=== PATIENT | female | born 1930 | race Caucasian/White ===

== ENCOUNTER → 2016-12-14 | Outpatient (CLI) | payer OTHER ==
[~2016-12-14] MED LIST: AMLO-114 PO; ASPEC81 PO; ATOR-26 PO; CIPR-255 PO; CLTP PO; LSN25 PO; MAGN1TAB41 PO; METO25TA3 PO; NTRGSL/4 UT
[2016-12-14 13:14] LABS: BLOOD UREA NITROGEN 32 mg/dl (7-18); BUN/CREATININE RATIO 24.8 (10-20); CALCIUM 9.4 mg/dl (8.5-10.1); CARBON DIOXIDE 26 mmol/L (21-32); CHLORIDE 104 mmol/L (98-107); GLUCOSE 91 mg/dl (70-99); POTASSIUM 4.5 mmol/L (3.5-5.1); SODIUM 141 mmol/L (136-145)
== END | disposition home or self-care (01) ==
LOC: C.LABPVFM 08:28
PROVIDERS: ATTEND Internal Medicine Cardiovascular Disease
DX: I10 Essential (primary) hypertension (principal)

== ENCOUNTER → 2017-05-03 | Outpatient (CLI) | payer OTHER ==
[2017-05-03 13:24] LABS: CALCIUM 9.3 mg/dl (8.5-10.1)
[2017-05-03 13:29] LABS: ALT/SGPT 13 U/L (12-78); BLOOD UREA NITROGEN 35 mg/dl (7-18); BUN/CREATININE RATIO 26.6 (10-20); CARBON DIOXIDE 27 mmol/L (21-32); CHLORIDE 108 mmol/L (98-107); CHOLESTEROL 143 mg/dl (0-200); GLUCOSE 85 mg/dl (70-99); POTASSIUM 4.5 mmol/L (3.5-5.1); SODIUM 144 mmol/L (136-145); TRIGLYCERIDES 112 mg/dl (0-150); VERY LOW DENSITY LIPOPROT CALC 22 mg/dl
[2017-05-03 13:39] LABS: ALKALINE PHOSPHATASE 62 U/L (45-117); AST/SGOT 19 U/L (15-37); CHOLESTEROL/HDL RATIO 2.8; HDL CHOLESTEROL 51 mg/dl; LDL CHOLESTEROL CALCULATED 70 mg/dl
== END | disposition home or self-care (01) ==
LOC: C.LABPVFM 09:03
PROVIDERS: ATTEND Family Medicine
DX: I12.9 Hypertensive chronic kidney disease with stage 1 through stage 4 chronic kidney disease, or unspecified chronic kidney disease (principal); E78.5 Hyperlipidemia, unspecified; N18.3 Chronic kidney disease, stage 3 (moderate)

== ENCOUNTER → 2017-05-20 | Outpatient (CLI) | payer OTHER ==
[2017-05-20 13:42] LABS: BLOOD UREA NITROGEN 32 mg/dl (7-18); BUN/CREATININE RATIO 24.8 (10-20); CALCIUM 9.5 mg/dl (8.5-10.1); CARBON DIOXIDE 24 mmol/L (21-32); CHLORIDE 105 mmol/L (98-107); GLUCOSE 98 mg/dl (70-99); POTASSIUM 4.7 mmol/L (3.5-5.1); SODIUM 137 mmol/L (136-145)
== END | disposition home or self-care (01) ==
LOC: C.LABPVFM 08:47
PROVIDERS: ATTEND Internal Medicine Cardiovascular Disease
DX: E78.5 Hyperlipidemia, unspecified (principal); R00.1 Bradycardia, unspecified; I95.1 Orthostatic hypotension; N18.3 Chronic kidney disease, stage 3 (moderate); I12.9 Hypertensive chronic kidney disease with stage 1 through stage 4 chronic kidney disease, or unspecified chronic kidney disease

== ENCOUNTER → 2017-09-28 | Outpatient (CLI) | payer OTHER ==
[2017-09-28 17:34] LABS: BLOOD UREA NITROGEN 33 mg/dl (7-18); BUN/CREATININE RATIO 26.6 (10-20); CALCIUM 9.6 mg/dl (8.5-10.1); CARBON DIOXIDE 26 mmol/L (21-32); CHLORIDE 103 mmol/L (98-107); CREATININE 1.25 mg/dl (0.60-1.20); GLUCOSE 93 mg/dl (70-99); POTASSIUM 5.1 mmol/L (3.5-5.1); SODIUM 136 mmol/L (136-145)
[2017-09-28 17:35] LABS: PHOSPHORUS 3.6 mg/dl (2.5-4.9)
== END | disposition home or self-care (01) ==
LOC: C.LABPVFM 11:41
PROVIDERS: ATTEND Family Medicine
DX: N18.3 Chronic kidney disease, stage 3 (moderate) (principal)

== ENCOUNTER → 2018-02-23 | Outpatient (CLI) | payer OTHER ==
[~2018-02-23] MED LIST changes: -METO25TA3 PO; +METO25TA4 PO
[2018-02-23 13:48] LABS: BLOOD UREA NITROGEN 25 mg/dl (7-18); GLUCOSE 96 mg/dl (70-99)
[2018-02-23 13:49] LABS: ALBUMIN 3.6 gm/dl (3.4-5.0); ALT/SGPT 14 U/L (12-78); AST/SGOT 20 U/L (15-37); CALCIUM 9.6 mg/dl (8.5-10.1); CARBON DIOXIDE 28 mmol/L (21-32); CREATININE 1.25 mg/dl (0.60-1.20); POTASSIUM 4.3 mmol/L (3.5-5.1); SODIUM 137 mmol/L (136-145)
[2018-02-23 13:51] LABS: ALKALINE PHOSPHATASE 75 U/L (45-117); CHOLESTEROL 148 mg/dl (0-200); LDL CHOLESTEROL CALCULATED 71 mg/dl; TOTAL PROTEIN 7.3 gm/dl (6.4-8.2)
== END | disposition home or self-care (01) ==
LOC: C.LABPVFM 08:44
PROVIDERS: ATTEND Family Medicine
DX: I12.9 Hypertensive chronic kidney disease with stage 1 through stage 4 chronic kidney disease, or unspecified chronic kidney disease (principal); E78.5 Hyperlipidemia, unspecified; I25.10 Atherosclerotic heart disease of native coronary artery without angina pectoris; N18.3 Chronic kidney disease, stage 3 (moderate); K21.9 Gastro-esophageal reflux disease without esophagitis

== ENCOUNTER 2018-11-19 06:02 | Inpatient (IN) ==
[2018-11-19] MEDS ORDERED: NITROGLYCERIN SL 0.4 MG/TAB TAB SL STA (06:16)
[2018-11-19] MEDS ORDERED: ASPIRIN CHEW 324 MG PO STA (06:16)
[2018-11-19] MEDS ORDERED: NITROGLYCERIN SL 0.4 MG/TAB TAB ONE (06:19)
--- NOTE | 2018-11-19 06:21 | Emergency Department Note ---
ED Provider Note Name: India Reyes Age: 87 F Arrives Via: POV Informant: Pt CC: Chest Pain HPI: 87 female arrives for evaluation of chest pain. Patient note stuttering on and off chest discomfort over last few days. Nothing makes better nor worse. Associated diaphoresis and lightheaded. No nausea, vomiting, syncope, palpitations, leg swelling, shortness of breath nor other symptoms. This morning vastly worsened chest pain. Crushing in nature. Comes to ED for evaluation. Notes pain is starting to ease up. History of CAD with CABG. Notes stress test last year which she thinks was normal. No medications prior to arrival. Notes fall last week with left head injury and left hip/lower leg contusions. No LOC, no headache, no neuro deficits. ROS: See above HPI for pertinent positives & negatives. A total of 10 systems reviewed and were otherwise negative. Past Medical History: Renal Insufficiency, DLP, Hypo Mag, HTN, CAD Past Surgical History: CABG, Back Surgery, Hysterectomy Family History: Father and sister with CVA Social History: Previous smoker decades ago. Does not use alcohol. Retired Home Medications: Amlodipine, [id number] mg , Lipitor 80mg, calcium, lisinopril 2.5mg, magnesium 400mg po, metoprolol Allergies KNDA Physical: Vitals: 134/56, P 93, R 24, T 36.4, O2 91 Exam: GENERAL: Patient is well appearing and in mild distress. EYES: No scleral icterus, unremarkable pupils. ENT: Mucous membranes moist, no nasal congestion. NECK: No masses appreciated, no meningismus, trachea is midline. RESPIRATORY: Mild dyspnea. Moderate crackles at bases. CARDIOVASCULAR: Regular rate and rhythm. No murmurs, rubs, gallops appreciated. GASTROINTESTINAL: Abdomen soft, non-tender, no peritonitis. Bowel sounds positive. No masses appreciated. BACK: No midline tenderness, no CVA tenderness EXTREMITIES: Normal motion all extremities, no cyanosis, no edema. NEUROLOGIC: Alert and oriented, no acute motor or sensory deficits, no focal weakness, cranial nerves grossly intact. SKIN: Bruise lateral left lower leg (fall in shower), no calf swelling, No rash , no jaundice, no diaphoresis. GSC: 15 ED Course: Prior Medical Record, Triage/Nursing Notes, Medications, Allergies reviewed by Me Vital Signs: reviewed and remarkable for mild hypoxia Labs: Reviewed and remarkable for + Troponin, mild renal insufficiency Interventions: ASA 324mg PO, SLNTG, Heparin bolus/gtt Imaging: X ray results are stated below per my interpretation: Chest: 1 view: Diffuse congestive findings with pleural effusions. Consistent with congestive heart failure [place] Radiologist interpretation reviewed by me: CT Head: No acute findings - Dr Squires EKG: Per My interpretation: EKG #1: 0609: NSR at 94bpm with marked ST depressions inferolateral much increased from EKG Apr 2015. No ectopy noted. QTC 497 EKG #2: 0626: Sinus with PVCs. [address] depressions laterally similar to earlier EKG though mildly flattened out. Consults: 06:43 - Dr Bower of Interventional Cards who notes plan medical admit and he will consult, though call heart alert if pain worsening, etc. 07:07 - Dr Guido [facility] Hospitalist Called (returned 07:10) for admission of patient to Dr Cerna's service Reassessments/Times: 0625: Received SLNTG and cp resolving. Runs of ectopy - repeat EKG ordered. 06:40: Resolution of chest pain. Resolution of ectopy. 06:47: Feeling well other than some nausea (declines meds), and stable. No abdominal pain. 07:15: Still doing well. 07:30: No headache will start heparin now that CT head negative Blood pressure: Normal. No Referral necessary Disposition: Admit to [place] hospitalist. Differentials: ACS, Dissection, PE, PNA, Arrythmia, amongst other pathologies. Medical Decision Makin yr old female with history CAD and CABG who arrives for substernal chest pressure resolving after SLNTG. She had clear ST depressions new on EKGs today. Developed some ectopy though this calmed down. Trop positive. As chest pain resolved and discussed with Dr Bower who agrees with holding off on Heart Alert at this point. She admits striking head last week in a heavy fall thus CT head ordered pre Heparin. No bleeding, stomach pain, vomiting. We reviewed at length the risks/benefits of Heparin and she agrees. She has noted mild hypoxia on arrival though exam consistent with CHF thus I think PE unlikely though am already starting Heparin thus I do not feel that doing contrast CT at this time would be beneficial. Mild renal insufficiency noted. No symptoms of infection. She has evidence of congestive failure on CXR which likely is cause of her hypoxia and with good BP will give dose IV lasix. Impression: Acute Non-ST Elevation Myocardial Infarction Closed Head Injury Congestive Heart Failure Critical Care Time: I have personally spent greater than 45 minutes of critical care time in the direct management of this patient. Acute NSTEMI with new congestive heart failure starting on heparin. This was a life/limb threatening event. This includes time spent evaluating patient, direct bedside care, chart review, placing orders, interpretation of diagnostic studies, discussion with consultants, patient, and family members, as well as other required patient management activities. This 45 minutes is in excess of all separately billable procedures. Impression & Plan Acute non-ST elevation myocardial infarction (NSTEMI), CHI (closed head injury) , Congestive heart failure Past Med/Surg History Social History Feels Safe at Home: Yes Smoking Status: Never smoker Results & Data Vital Signs Vital Signs - 24 hr 11/19/18 06:07 11/19/18 06:09 11/19/18 06:12 Temperature 36.4 C L Temperature Source Oral Sepsis Recent Fever Within 48 Hours No Sepsis Action Taken by Nursing No Action Required Pulse Rate 93 H 93 H 94 H Pulse Rate [Left Brachial] Respiratory Rate 29 H 24 24 Respiratory Effort / Characteristics Respiratory Depth Respiratory Pattern Blood Pressure 134/56 L 134/56 L Blood Pressure [Left Arm] Blood Pressure Mean 82 82 Blood Pressure Mean [Left Arm] Blood Pressure Position [Left Arm] Pulse Oximetry 90 91 91 Oxygen Delivery Method Room Air Oxygen Flow Rate 11/19/18 06:15 11/19/18 06:30 11/19/18 06:45 Temperature Temperature Source Sepsis Recent Fever Within 48 Hours Sepsis Action Taken by Nursing Pulse Rate 93 H 81 Pulse Rate [Left Brachial] 82 Respiratory Rate 32 H 18 16 Respiratory Effort / Characteristics Non-Labored Spontaneous Respiratory Depth Normal Respiratory Pattern Regular Blood Pressure Blood Pressure [Left Arm] 108/59 L Blood Pressure Mean Blood Pressure Mean [Left Arm] 75 Blood Pressure Position [Left Arm] Lying Pulse Oximetry 92 93 95 Oxygen Delivery Method Room Air Room Air Oxygen Flow Rate 11/19/18 07:22 Temperature Temperature Source Sepsis Recent Fever Within 48 Hours Sepsis Action Taken by Nursing Pulse Rate Pulse Rate [Left Brachial] 85 Respiratory Rate 18 Respiratory Effort / Characteristics Non-Labored Spontaneous Respiratory Depth Normal Respiratory Pattern Regular Blood Pressure Blood Pressure [Left Arm] 113/56 L Blood Pressure Mean Blood Pressure Mean [Left Arm] 75 Blood Pressure Position [Left Arm] Lying Pulse Oximetry 93 Oxygen Delivery Method Nasal Cannula Oxygen Flow Rate 2 Laboratory Data Result diagrams: 11/19/18 06:20 11/19/18 06:20 Lab Results 11/19/18 11/19/18 11/19/18 Range/Units 06:20 06:20 06:20 WBC 12.71 H (4.8-10.8) K/uL RBC 3.77 L (4.2-5.4) M/uL Hgb 11.6 L (12.0-16.0) g/dL POC Hgb (12.0-16.0) g/dl Hct 35.5 L (37-47) % POC Hct (37-47) % MCV 94.2 (80-100) fL MCH 30.8 (25-34) pg MCHC 32.7 (32-36) g/dL RDW Std Deviation 45.2 (36.4-46.3) fL RDW Coeff of Bairon 13.2 (11.5-14.5) % Plt Count 235 (130-400) K/uL MPV 11.0 H (7.4-10.4) fL Immature Gran % (Auto) 0.3 % Neut % (Auto) 73.3 % Lymph % (Auto) 18.3 % [place] % (Auto) 6.1 % Eos % (Auto) 1.8 % Baso % (Auto) 0.2 % Immature Gran # (Auto) 0.04 H (0.00-0.02) K/uL Neut # (Auto) 9.32 H (1.4-6.5) K/uL Lymph # (Auto) 2.32 (1.2-3.4) K/uL [place] # (Auto) 0.77 H (0.11-0.59) K/uL Eos # (Auto) 0.23 (0-0.5) K/uL Baso # (Auto) 0.03 (0-0.2) K/uL PT 9.9 (9.0-12.0) Seconds INR 1.0 (0.9-1.1) APTT 25.6 (21.0-31.0) Seconds PTT Ratio 1.0 POC Sodium (135-144) mEq/L Sodium 136 (136-145) mmol/L POC Potassium (3.3-5.0) mEq/L Potassium 4.3 (3.5-5.1) mmol/L POC Chloride (101-112) mEq/L Chloride 104 (98-107) mmol/L Carbon Dioxide 23 (21-32) mmol/L POC Total CO2 (24-31) mEq/l Anion Gap 9.0 (3-11) POC Anion Gap (16-25) mmol/L POC BUN (7-18) mg/dl BUN 33 H (7-18) mg/dl Creatinine 1.55 H (0.6-1.2) mg/dl POC Creatinine (0.6-1.3) mg/dl Est Cr Clr Drug Dosing 21.2 ml/min Est GFR ( Amer) 34.8 Est GFR (Non-Af Amer) 30.0 BUN/Creatinine Ratio 21.2 H (10-20) Glucose 115 H (70-99) mg/dl POC Glucose (other) (70-99) mg/dl Calcium 9.7 (8.5-10.1) mg/dl POC Ioniz Calcium Zach (1.12-1.32) mmol/l Magnesium 2.4 (1.8-2.4) mg/dl POC Troponin I (0-0.045) ng/ml Troponin I 0.581 H* (0-0.045) ng/ml 11/19/18 11/19/18 Range/Units 06:22 06:28 WBC (4.8-10.8) K/uL RBC (4.2-5.4) M/uL Hgb (12.0-16.0) g/dL POC Hgb 11.6 L (12.0-16.0) g/dl Hct (37-47) % POC Hct 34 L (37-47) % MCV (80-100) fL MCH (25-34) pg MCHC (32-36) g/dL RDW Std Deviation (36.4-46.3) fL RDW Coeff of Bairon (11.5-14.5) % Plt Count (130-400) K/uL MPV (7.4-10.4) fL Immature Gran % (Auto) % Neut % (Auto) % Lymph % (Auto) % [place] % (Auto) % Eos % (Auto) % Baso % (Auto) % Immature Gran # (Auto) (0.00-0.02) K/uL Neut # (Auto) (1.4-6.5) K/uL Lymph # (Auto) (1.2-3.4) K/uL [place] # (Auto) (0.11-0.59) K/uL Eos # (Auto) (0-0.5) K/uL Baso # (Auto) (0-0.2) K/uL PT (9.0-12.0) Seconds INR (0.9-1.1) APTT (21.0-31.0) Seconds PTT Ratio POC Sodium 139 (135-144) mEq/L Sodium (136-145) mmol/L POC Potassium 4.4 (3.3-5.0) mEq/L Potassium (3.5-5.1) mmol/L POC Chloride 103 (101-112) mEq/L Chloride (98-107) mmol/L Carbon Dioxide (21-32) mmol/L POC Total CO2 22 L (24-31) mEq/l Anion Gap (3-11) POC Anion Gap 19.0 (16-25) mmol/L POC BUN 28 H (7-18) mg/dl BUN (7-18) mg/dl Creatinine (0.6-1.2) mg/dl POC Creatinine 1.5 H (0.6-1.3) mg/dl Est Cr Clr Drug Dosing ml/min Est GFR ( Amer) Est GFR (Non-Af Amer) BUN/Creatinine Ratio (10-20) Glucose (70-99) mg/dl POC Glucose (other) 119 H (70-99) mg/dl Calcium (8.5-10.1) mg/dl POC Ioniz Calcium Zach 1.15 (1.12-1.32) mmol/l Magnesium (1.8-2.4) mg/dl POC Troponin I 1.04 H (0-0.045) ng/ml Troponin I (0-0.045) ng/ml Administered Medications Discontinued Medications Aspirin (Aspirin) 324 mg PO NOW STA Stop: 11/19/18 06:17 Last Admin: 11/19/18 06:24 Dose: 324 mg Furosemide (Lasix) 40 mg IV NOW STA Stop: 11/19/18 07:13 Last Admin: 11/19/18 07:20 Dose: 40 mg Nitroglycerin (Nitrostat) 0.4 mg SL NOW STA Stop: 11/19/18 06:17 Last Admin: 11/19/18 06:24 Dose: Not Given Nitroglycerin (Nitrostat) Confirm Administered Dose 0.4 mg .ROUTE .STK-MED ONE Stop: 11/19/18 06:20 Last Admin: 11/19/18 06:19 Dose: 0.4 mg Discharge Plan Visit Data Chief Complaint: Chest Pain Stated Complaint: CHEST PAIN,HEADACHE ED Provider: Simone Meier Discharge Problem: Acute non-ST elevation myocardial infarction (NSTEMI), CHI (closed head injury) , Congestive heart failure Forms Stand Alone Forms: [facility] [employer] Prescriptions Prescriptions: No Action amlodipine 10 mg Tablet 10 mg PO DAILY RF: 0 aspirin [Aspir-81] 81 mg Tablet,Delayed Release (Dr/Ec) 81 mg PO DAILY RF: 0 atorvastatin 80 mg Tablet 80 mg PO DAILY RF: 0 calcium carbonate-vitamin D3 [Caltrate 600 + D] 600 mg (1,500 mg)-800 unit Tablet,Chewable 1 tab PO AMPM RF: 0 lisinopril 10 mg Tablet 10 mg PO DAILY RF: 0 meclizine 25 mg Tablet 25 mg PO Q6H PRN (Reason: Dizziness) RF: 0 nitroglycerin [Nitrostat] 0.4 mg Tablet, Sublingual 0.4 mg Sublingual UD PRN (Reason: Chest Pain) RF: 0 omeprazole 40 mg Capsule,Delayed Release(Dr/Ec) 40 mg PO DAILY RF: 0 magnesium oxide 400 mg magnesium Tablet 400 mg PO DAILY RF: 0
[2018-11-19 06:34] LABS: Basophils # (auto) 0.03 K/uL (0-0.2); Basophils % (auto) 0.2 %; Eosinophils # (auto) 0.23 K/uL (0-0.5); Eosinophils % (auto) 1.8 %; Hematocrit (blood only) 35.5 % (37-47); Hemoglobin 11.6 g/dL (12.0-16.0); Immature Granulocytes # (auto) 0.04 K/uL (0.00-0.02); Immature Granulocytes % (auto) 0.3 %; Lymphocytes # (auto) 2.32 K/uL (1.2-3.4); Lymphocytes % (auto) 18.3 %; Mean Corpuscular Hgb Conc 32.7 g/dL (32-36); Mean Corpuscular Volume 94.2 fL (80-100); Monocytes # (auto) 0.77 K/uL (0.11-0.59); Monocytes % (auto) 6.1 %; Neutrophils # (auto) 9.32 K/uL (1.4-6.5); Neutrophils % (auto) 73.3 %; Platelet Count 235 K/uL (130-400); RDW Coefficient of Variation 13.2 % (11.5-14.5); RDW Standard Deviation 45.2 fL (36.4-46.3); Red Blood Count 3.77 M/uL (4.2-5.4); White Blood Count 12.71 K/uL (4.8-10.8)
[2018-11-19 06:37] LABS: iSTAT Hemoglobin 11.6 g/dl (12.0-16.0); iSTAT Ionized Calcium 1.15 mmol/l (1.12-1.32)
--- NOTE | 2018-11-19 06:37 | XRay Report ---
XR chest 1V portable CLINICAL HISTORY: CP dyspnea COMPARISON STUDY: 05/02/2015 FINDINGS: Mild increase in cardiac size. Prominent pulmonary vasculature. Trace pleural fluid both constance ng bases. IMPRESSION: Congestive heart failure The above report was generated using voice recognition software. It may contain grammatical, syntax or spelling errors. Electronically signed by: Yasmany Squires M.D. 11/19/2018 6:35 AM
[2018-11-19 06:43] LABS: Partial Thromboplastin Time 25.6 Seconds (21.0-31.0); Prothrombin Time 9.9 Seconds (9.0-12.0)
[2018-11-19 06:49] LABS: BUN Creatinine Ratio 21.2 (10-20); Calcium 9.7 mg/dl (8.5-10.1); Creatinine Clr Calc Pharmacy 21.2 ml/min; Est GFR (African American) 34.8; Magnesium 2.4 mg/dl (1.8-2.4); Potassium 4.3 mmol/L (3.5-5.1)
[2018-11-19 06:57] LABS: Troponin I 0.581 ng/ml (0-0.045)
[2018-11-19] MEDS ORDERED: FUROSEMIDE 40 MG/4 ML VIAL IV STA ×2 (07:12→23:25)
[2018-11-19] MEDS ORDERED: HEPARIN SOD 5,000 UNIT/0.5 ML VIAL ONE (07:29)
[2018-11-19] MEDS ORDERED: HEPARIN 25000 UNIT/500 ML D5W IV ONE (07:29)
--- NOTE | 2018-11-19 07:32 | CT Scan Report ---
CT head/brain wo con CT DOSE: 537.48 mGy.cm HISTORY: Trauma. Mental status change. left head injury last week. TECHNIQUE: Multiaxial CT images of the head were performed without the use of intravenous contrast. A dose lowering technique was utilized adhering to the principles of ALARA. Comparison: None. Findings: The paranasal sinuses and mastoid air cells are clear. The calvarium and skull base are int act. The ventricles and sulci are within normal limits. There is no mass, hematoma, midline shift, or acute infarct. Impression: No acute intracranial abnormality. The above report was generated using voice recognition software. It may contain grammatical, syntax or spelling errors. Electronically signed by: Yasmany Squires M.D. 11/19/2018 7:30 AM
[2018-11-19] MEDS ORDERED: METOPROLOL TARTRATE 25 MG TAB PO SCH (09:00)
[2018-11-19] MEDS: CLOPIDOGREL BISULFATE 75 MG TAB PO SCH (10:39)
[2018-11-19] MEDS ORDERED: POLYETHYLENE (MIRALAX) 17 GM PACK PO PRN (12:00)
[2018-11-19] MEDS ORDERED: NITROGLYCERIN 2% OINTMENT 30GM TUBE EXT SCH (12:00)
[2018-11-19] MEDS ORDERED: NITROGLYCERIN SL 0.4 MG/TAB TAB SL PRN (12:00)
[2018-11-19] MEDS ORDERED: MAGNESIUM HYDROXIDE SUSP 30 ML UDC PO PRN (12:00)
[2018-11-19] MEDS ORDERED: MAGNESIUM OXIDE 400 MG TAB PO SCH (12:00)
[2018-11-19] MEDS ORDERED: ONDANSETRON INJ 2 MG/ML 2 ML VIAL IV PRN (12:00)
--- NOTE | 2018-11-19 12:42 | History & Physical Report ---
Addendum entered and electronically signed by Elisabeth Santos PA-C 11/19/18 17:59: Addendum (Blank) Addendum November 19, 2018 17:57 Pt. remains on Oxymask, 7L. O2 sats decreased to ~87% while sleeping. Also hypotensive all afternoon, SBP 90's. - Will insert ypeez catheter for strict I/Os. - Ordered Lasix 20 mg IV at 21:00 this evening, hold if SBP <90. - Hold Metoprolol 12.5 mg dose this evening. - Advance to heart healthy diet for dinner. Original Note: Date of Service November 19, 2018 Assessment & Plan (1) NSTEMI (non-ST elevated myocardial infarction): - Presented with acute chest pain possibly related to NSTEMI. - Troponin level remains elevated, will trend q6hr. - EKG showed ST depression in the anterior leads, T wave inversion. Trend EKGs daily & prn for worsening chest pain. - Cardiology consulted, appreciate input. Plan for cardiac cath on Wednesday. - Started low dose Metoprolol (12.5 mg BID) -- pt. was not able to tolerate beta blockade in past due to bradycardia. - Started Plavix 75 mg daily. - Continue Atorvastatin and Aspirin as prescribed; did receive Aspirin 324 mg in ER. - Nitro paste 0.5 inch q6hr. - On Heparin drip for anticoagulation therapy. (2) Elevated troponin: - Troponin was initially 0.5, now increased to 2.2 - Continue to trend q6hr. (3) Acute on chronic combined systolic and diastolic heart failure: - BNP >22,000; presented with hypoxia related to acute heart failure exacerbation. - TTE in 2013 showed EF 40-45%, grade I diastolic dysfunction. - TTE showed EF 30-35%, left atrial dilation. - CXR showed findings consistent with acute CHF. - Monitor strict I/O's and daily weights. - Received Lasix 40 mg IV in the ER; will give further doses pending improvement in hypotension. - Holding home ACEI due to hypotension; started BB as noted above. (4) Acute respiratory failure with hypoxia: - Likely related to acute CHF exacerbation. - Was requiring 4L via NC, now requiring oxymask at 7L. - Treatment of CHF as noted above. (5) Ischemic cardiomyopathy: - Echo June 2014 showed EF 40-45% with inferoposterior wall motion abnormality. - Repeat echo showed EF 30-35% with no wall motion abnormality noted. (6) Hypotension: - Was initially stable, has new hypotension likely multifactorial related to IV diuretic vs. Metoprolol vs. other. - Continue to trend BP closely -- cannot tolerate IV fluid boluses due to CHF exacerbation. - Holding home Amlodipine 10 mg daily and Lisinopril 10 mg daily. - On Metoprolol 12.5 mg BID for cardiac protection, continue med if tolerating. (7) Acute kidney injury: - Creatinine increased to 1.55. - Continue to monitor renal function qAM. (8) Chronic kidney disease, stage 3: - GFR ~35-40. - Renally dose medications. (9) Coronary artery disease: - Status post CABG x 2 in 2013, follows with Dr. Hodges. - Consulted cardiology as noted above. - Continue aspirin, statin as prescribed. (10) Hyperlipidemia: - Continue statin as prescribed. (11) Hypertension: - Currently hypotensive, holding home anti-hypertensives. (12) GERD (gastroesophageal reflux disease): - Continue PPI. (13) History of recent fall: - S/p recent fall within last 2 weeks. - CT head was negative. - Consider left lower extremity xrays for acute pain. (14) DVT prophylaxis: - Heparin drip. FEN/GI: NPO for possible procedure; No IVFs. DNR/DNI -- confirmed with patient and family at bedside. Dispo: PCU/telemetry. History of Present Illness Chief Complaint: Chest pain Primary Care Provider: Shamar Garcia MD Ms. Reyes is a 87 year old female with past medical history of CAD, CABG x 2, CKD, Hyperlipidemia, Hypertension, GERD who presented to the ER with chest pain. Pt. had similar symptoms in 2013 and underwent a cardiac catheterization; she was subsequently transferred to [facility] for CABG x 2. Pt. fell at home prior to Melissa; she was ambulating into the shower and fell to the ground. She hit her head, left hip and left ankle. Pain in left leg is now improved; CT head was negative in the ER for hemorrhage. Denies loss of consciousness during fall. She developed intermittent chest pain over the last 2 -3 days along with a mild headache. Chest pain increased in intensity overnight and was described as "crushing". Pain was located in the sternal area to left side of the chest. She had discomfort in her left arm along with nausea & diaphoresis overnight. Chest pain improved after receiving Nitroglycerin in the ER. Pt. was short of breath -- this is a chronic problem for her at home with exertion. She does not use oxygen via NC at home but has been requiring ~4L via NC since admission. Denies URI symptoms, fever/chills, LE edema, orthopnea. Denies constipation or diarrhea, vomiting, dysuria or hematuria, abdominal pain. Allergies Allergy/AdvReac Type Severity Reaction Status Date / Time No Known Allergies Allergy Mild Verified 11/19/18 06:46 Home Medications Home Medications Medication Instructions Recorded Confirmed Type amlodipine 10 mg PO DAILY 11/19/18 11/19/18 History aspirin [Aspir-81] 81 mg PO DAILY 11/19/18 11/19/18 History atorvastatin 80 mg PO DAILY 11/19/18 11/19/18 History calcium carbonate-vitamin D3 1 tab PO AMPM 11/19/18 11/19/18 History [Caltrate 600 + D] lisinopril 10 mg PO DAILY 11/19/18 11/19/18 History magnesium oxide 400 mg PO DAILY 11/19/18 11/19/18 History meclizine 25 mg PO Q6H PRN 11/19/18 11/19/18 History nitroglycerin [Nitrostat] 0.4 mg SUBLINGUAL UD PRN 11/19/18 11/19/18 History omeprazole 40 mg PO DAILY 11/19/18 11/19/18 History Past Med/Surg History Medical History CKD (chronic kidney disease), stage III Chronic combined systolic and diastolic heart failure Coronary artery disease GERD (gastroesophageal reflux disease) Hyperlipidemia Hypertension Mitral regurgitation Surgical History H/O right knee surgery History of carotid endarterectomy Previous back surgery S/P CABG x 2 Social History Current Living Situation: Alone Other Information That Helps Us Care for You: No Feels Safe at Home: Yes Safety Concerns: Feels Safe At This Time Smoking Status: Former smoker Do You Dip or Chew Tobacco: No Smoking End Date: 1978 Tobacco Cessation Education Requested by Patient: No Hx Alcohol Use: No Hx Substance Use: No Beliefs That Will Affect Care: None Communication Ability: Effective Review of Systems All systems reviewed & are unremarkable except as noted in HPI & below Constitutional: + weakness; no fever and no chills Eyes: no spots in vision and no worsening vision Ear, Nose, Mouth, Throat: no dizziness, no nasal congestion, no post nasal drip , no sinus pain/pressure, no sore throat and no dysphagia Respiratory: + dyspnea and + dyspnea on exertion; no cough, no chest congestion and no sputum production Cardiovascular: + chest pain at rest, + chest pain with activity, + radiating jaw, neck or arm pain and + dyspnea on exertion; no palpitations, no lightheadedness, no syncope and no edema Gastrointestinal: + nausea; no abdominal pain, no vomiting, no constipation and no diarrhea/loose stools Genitourinary (Female): no dysuria, no difficulty urinating and no hematuria Musculoskeletal: no joint pain Integumentary: no rash and no new lesions Neurologic: + falls and + headache(s) Physical Exam 2 Vital Signs (Past 24 Hours): Last Vital Signs Temp 37.1 C 11/19/18 11:37 Pulse 76 11/19/18 11:37 Resp 20 11/19/18 11:37 BP 89/55 L 11/19/18 11:37 Pulse Ox 90 11/19/18 11:37 Physical Exam: General: Elderly female, in no acute distress. HEENT: NC/AT; PERRLA with EOMI; [place] conjunctiva, MMM. No erythema of posterior pharynx Neck: Supple and nontender; No JVD Cardiac: RRR Lungs: on 4L via NC; bilat crackles at lower lung bases. Abdomen: Bowel normoactive X 4; Nontender to palpation Rectal: Deferred : Deferred Back: NO spinous tenderness Extremities: Warm. No edema present Neuro: No focal weakness Skin: Ecchymosis along left lateral lower leg. Results & Data Laboratory Results Lab Results 11/19/18 11/19/18 11/19/18 Range/Units 06:20 06:20 06:20 WBC 12.71 H (4.8-10.8) K/uL RBC 3.77 L (4.2-5.4) M/uL Hgb 11.6 L (12.0-16.0) g/dL POC Hgb (12.0-16.0) g/dl Hct 35.5 L (37-47) % POC Hct (37-47) % MCV 94.2 (80-100) fL MCH 30.8 (25-34) pg MCHC 32.7 (32-36) g/dL RDW Std Deviation 45.2 (36.4-46.3) fL RDW Coeff of Bairon 13.2 (11.5-14.5) % Plt Count 235 (130-400) K/uL MPV 11.0 H (7.4-10.4) fL Immature Gran % (Auto) 0.3 % Neut % (Auto) 73.3 % Lymph % (Auto) 18.3 % [place] % (Auto) 6.1 % Eos % (Auto) 1.8 % Baso % (Auto) 0.2 % Immature Gran # (Auto) 0.04 H (0.00-0.02) K/uL Neut # (Auto) 9.32 H (1.4-6.5) K/uL Lymph # (Auto) 2.32 (1.2-3.4) K/uL [place] # (Auto) 0.77 H (0.11-0.59) K/uL Eos # (Auto) 0.23 (0-0.5) K/uL Baso # (Auto) 0.03 (0-0.2) K/uL PT 9.9 (9.0-12.0) Seconds INR 1.0 (0.9-1.1) APTT 25.6 (21.0-31.0) Seconds PTT Ratio 1.0 POC Sodium (135-144) mEq/L Sodium 136 (136-145) mmol/L POC Potassium (3.3-5.0) mEq/L Potassium 4.3 (3.5-5.1) mmol/L POC Chloride (101-112) mEq/L Chloride 104 (98-107) mmol/L Carbon Dioxide 23 (21-32) mmol/L POC Total CO2 (24-31) mEq/l Anion Gap 9.0 (3-11) POC Anion Gap (16-25) mmol/L POC BUN (7-18) mg/dl BUN 33 H (7-18) mg/dl Creatinine 1.55 H (0.6-1.2) mg/dl POC Creatinine (0.6-1.3) mg/dl Est Cr Clr Drug Dosing 21.2 ml/min Est GFR ( Amer) 34.8 Est GFR (Non-Af Amer) 30.0 BUN/Creatinine Ratio 21.2 H (10-20) Glucose 115 H (70-99) mg/dl POC Glucose (other) (70-99) mg/dl Calcium 9.7 (8.5-10.1) mg/dl POC Ioniz Calcium Zach (1.12-1.32) mmol/l Magnesium 2.4 (1.8-2.4) mg/dl POC Troponin I (0-0.045) ng/ml Troponin I 0.581 H* (0-0.045) ng/ml 11/19/18 11/19/18 Range/Units 06:22 06:28 WBC (4.8-10.8) K/uL RBC (4.2-5.4) M/uL Hgb (12.0-16.0) g/dL POC Hgb 11.6 L (12.0-16.0) g/dl Hct (37-47) % POC Hct 34 L (37-47) % MCV (80-100) fL MCH (25-34) pg MCHC (32-36) g/dL RDW Std Deviation (36.4-46.3) fL RDW Coeff of Bairon (11.5-14.5) % Plt Count (130-400) K/uL MPV (7.4-10.4) fL Immature Gran % (Auto) % Neut % (Auto) % Lymph % (Auto) % [place] % (Auto) % Eos % (Auto) % Baso % (Auto) % Immature Gran # (Auto) (0.00-0.02) K/uL Neut # (Auto) (1.4-6.5) K/uL Lymph # (Auto) (1.2-3.4) K/uL [place] # (Auto) (0.11-0.59) K/uL Eos # (Auto) (0-0.5) K/uL Baso # (Auto) (0-0.2) K/uL PT (9.0-12.0) Seconds INR (0.9-1.1) APTT (21.0-31.0) Seconds PTT Ratio POC Sodium 139 (135-144) mEq/L Sodium (136-145) mmol/L POC Potassium 4.4 (3.3-5.0) mEq/L Potassium (3.5-5.1) mmol/L POC Chloride 103 (101-112) mEq/L Chloride (98-107) mmol/L Carbon Dioxide (21-32) mmol/L POC Total CO2 22 L (24-31) mEq/l Anion Gap (3-11) POC Anion Gap 19.0 (16-25) mmol/L POC BUN 28 H (7-18) mg/dl BUN (7-18) mg/dl Creatinine (0.6-1.2) mg/dl POC Creatinine 1.5 H (0.6-1.3) mg/dl Est Cr Clr Drug Dosing ml/min Est GFR ( Amer) Est GFR (Non-Af Amer) BUN/Creatinine Ratio (10-20) Glucose (70-99) mg/dl POC Glucose (other) 119 H (70-99) mg/dl Calcium (8.5-10.1) mg/dl POC Ioniz Calcium Zach 1.15 (1.12-1.32) mmol/l Magnesium (1.8-2.4) mg/dl POC Troponin I 1.04 H (0-0.045) ng/ml Troponin I (0-0.045) ng/ml Diagnostic Findings XR chest 1V portable CLINICAL HISTORY: CP dyspnea COMPARISON STUDY: 05/02/2015 FINDINGS: Mild increase in cardiac size. Prominent pulmonary vasculature. Trace pleural fluid both lung bases. IMPRESSION: Congestive heart failure CT head/brain wo con CT DOSE: 537.48 mGy.cm HISTORY: Trauma. Mental status change. left head injury last week. TECHNIQUE: Multiaxial CT images of the head were performed without the use of intravenous contrast. A dose lowering technique was utilized adhering to the principles of ALARA. Comparison: None. Findings: The paranasal sinuses and mastoid air cells are clear. The calvarium and skull base are intact. The ventricles and sulci are within normal limits. There is no mass, hematoma, midline shift, or acute infarct. Impression: No acute intracranial abnormality. ECG Additional Comments: ECG initially with ST depression in inferolateral leads, mildly prolonged QTc, NSR-previous ECG with some nonspecific ST changes in same leads but not nearly as depressed Repeat ECG with ST depression lateral leads slightly improved from previous Code Status & VTE Plan Code Status DNR/DNI Supervising Physician Co-Signing Physician Notes PA Supervision Note: I personally saw and examined the patient. I verified all early points and agree with VINNY Santos with the following exceptions and/or additions: Pt here with acute onset of left sided, substernal crushing CP radiating to the LUE, and associated with nausea, diaphoresis, and relieved with NTG in the ER. She was also acutely SOB and found to be in failure in the ER. Was given 1 dose of IV lasix and with acute hypoxic resp failure, placed on O2. Troponin is elevated and trending upward throughout the day. When I saw the pt after she arrived to the floor, she had told the RN she had chest tightness. A repeat ECG was done which no longer showed the ST depressions in inferolateral leads, and when I saw her, she told me that all of her chest pain and tightness was completely gone now. She reports that she had some lingering CP for a while after receiving the NTG initially, but now gone. She was also now requiring 7L Oxymask and BPs were running low. I discussed the case with Dr. Powers/Cardiology. History reviewed as above ROS as above, plus having Left lower back pain since being in the hospital bed- has a h/o lumbar spine fusion 2-+ years ago Vitals reviewed, hypotensive NAD, initially lying flat on her back when I saw her RRR no mgr Pulm with crackles to mid lung sinclair bilat, no wheezes Abd +BS soft NT ND, no bruit or palpable mass, no pulsating mass Ext no edema, no calf tenderness Pt is an 87 yo female with a h/o CAD s/p CABG, HTN, HLD, GERD, lumbar spinal stenosis, here with unstable angina and NSTEMI, with sunbsequent acute on chronic combined systolic and diastolic CHF and acute hypoxic respiratory failure. Troponin trending upward, ECHO with global hypokinesis, EF 35%. Pt with hypotension after receiving IV lasix and low dose metoprolol, no current chest pain -will attempt diuresis if possible as is in resp failure, however low BPs are limiting -would not give morphine or NTG as could further drop BP -continue to trend troponin, plan for cardiac cath either Wednesday if stable or sooner if becomes more unstable -hold metoprolol for evening dose -if BP worsens/goes lower, consider transfer to ICU for pressors, perhaps dobutamine. Also with mild JULIO on CKD Stage III, range scientist 1.55. Trend BMP, I/Os, daily weights Place Yepez catheter
[2018-11-19] MEDS: NITROGLYCERIN 2% OINTMENT 30GM TUBE EXT SCH ×2 (12:51→17:54)
[2018-11-19] MEDS: HEPARIN STANDARD DEXTROSE 25,000 UNITS/500 ML IV SCH (12:56)
[2018-11-19 13:09] LABS: Troponin I 2.24 ng/ml (0-0.045)
--- NOTE | 2018-11-19 13:27 | Cardiology Consultation ---
Date of Consultation November 19, 2018 Assessment & Plan (1) Unstable angina pectoris: The patient gives a 2 week history of progressive angina pectoris. She had a prolonged episode lasting 4-5 hours earlier today. Initial troponin is elevated. Fortunately, patient is now pain-free. Recommend continuation of intravenous heparin, low-dose metoprolol, aspirin, and Plavix. She will be scheduled for cardiac catheterization Wednesday morning. (2) Ischemic cardiomyopathy: Echocardiogram performed in June 2014 noted ejection fraction of 40-45% with an inferoposterior wall motion abnormality. Repeat study pending at this time. (3) Coronary artery disease: The patient was diagnosed with coronary artery disease in 2003 and was manage medically until her 2 vessel bypass performed in June 2014. This included an PERALES to the LAD, an SVG to the LCx. (4) Hypertension: Controlled on current medical regimen. History of Present Illness Attending Physician: Imelda Cerna MD History of Present Illness Mrs. Reyes is an 87-year-old female admitted earlier today with unstable angina pectoris. This consultation was ordered to assist in her management. Of note, she typically follows with Dr. Hodges in the outpatient setting. The patient was in her usual state of health until approximately 2 weeks ago. She began to note substernal chest discomfort with most physical activity. She also experienced exertional dyspnea. Her symptoms resolved rapidly with rest. The patient awoke at 1 o'clock this morning with substernal chest discomfort radiating to her left shoulder and arm. There is also associated shortness of breath. The patient called her son at 5 a.m. and she was brought to the emergency room. After receiving sublingual nitroglycerin, the patient's symptoms resolved. The patient does have a longstanding history of coronary artery disease. Was 1st diagnosed in 2003 and she was treated medically until she required bypass surgery in June 2014. She had an PERALES to the LAD, an SVG to the LCx. That surgery was performed at [facility]. The patient has done well from a cardiac perspective until that described above. Currently, patient is resting comfortably in bed without complaints. Past medical and surgical history 1. Coronary artery disease 2. CABG times 16 June 2014-see above 3. Ischemic [id number]%-June 2014 4. Moderate mitral regurgitation 5. Mild aortic insufficiency 6. Hypertension 7. Hypercholesterolemia 8. Chronic renal failure 9. Cerebral vascular disease 10. GERD 11. Right carotid endarterectomy 12. History of lumbar spinal surgery Social history , lives alone Quit tobacco use 30 years ago Occasional alcohol Family history Noncontributory Review of systems A 10 point review of systems was undertaken and negative except for that described above. Allergies Allergy/AdvReac Type Severity Reaction Status Date / Time No Known Allergies Allergy Mild Verified 11/19/18 06:46 Home Medications Home Medications Medication Instructions Recorded Confirmed Type amlodipine 10 mg PO DAILY 11/19/18 11/19/18 History aspirin [Aspir-81] 81 mg PO DAILY 11/19/18 11/19/18 History atorvastatin 80 mg PO DAILY 11/19/18 11/19/18 History calcium carbonate-vitamin D3 1 tab PO AMPM 11/19/18 11/19/18 History [Caltrate 600 + D] lisinopril 10 mg PO DAILY 11/19/18 11/19/18 History magnesium oxide 400 mg PO DAILY 11/19/18 11/19/18 History meclizine 25 mg PO Q6H PRN 11/19/18 11/19/18 History nitroglycerin [Nitrostat] 0.4 mg SUBLINGUAL UD PRN 11/19/18 11/19/18 History omeprazole 40 mg PO DAILY 11/19/18 11/19/18 History Patient History Medical History CKD (chronic kidney disease), stage III Chronic combined systolic and diastolic heart failure Coronary artery disease GERD (gastroesophageal reflux disease) Hyperlipidemia Hypertension Mitral regurgitation Surgical History H/O right knee surgery History of carotid endarterectomy Previous back surgery S/P CABG x 2 Social History Current Living Situation: Alone Other Information That Helps Us Care for You: No Feels Safe at Home: Yes Safety Concerns: Feels Safe At This Time Smoking Status: Former smoker Do You Dip or Chew Tobacco: No Smoking End Date: 1978 Tobacco Cessation Education Requested by Patient: No Hx Alcohol Use: No Hx Substance Use: No Beliefs That Will Affect Care: None Preferred Language: Cypriot Communication Ability: Effective Sugar Laboratory Assistant Required: No Physical Exam 2 Vital Signs (Past 24 Hours): Last Vital Signs Temp 37.1 C 11/19/18 11:37 Pulse 76 11/19/18 11:37 Resp 20 11/19/18 12:39 BP 90/60 L 11/19/18 12:39 Pulse Ox 90 11/19/18 12:39 Physical Exam: In general is well-developed well-nourished elderly white female lying supine in bed without complaints. HEENT exam is negative. Neck is supple with full carotid upstrokes. No carotid bruits. Jugular venous pressure is flat at 90 degrees. There is no thyromegaly. Cardiovascular exam reveals a regular rhythm with a 1/6 basal systolic ejection murmur. A prominent S4 is noted. No S3. Lungs note scattered rhonchi but no rales. Abdomen is soft without bruits. Extremities reveal intact radial pulses bilaterally. Trace pretibial edema is noted. Results & Data Laboratory Results CBC notes hemoglobin 11.6, adequate 35.5, white count 12.7, platelet count [id number]. Electrolytes episode of 139, potassium 4.4, chloride 103, bicarb 22, BUN 20, creatinine 1.5, glucose 119. Initial troponin was elevated 0.581. EKG notes sinus rhythm with poor R-wave progression. There is significant ST depression and T-wave inversions across the anterolateral leads. Follow-up tracing notes improvement in those ST and T changes. Diagnostic Findings EKG notes sinus rhythm with poor R-wave progression. There is significant ST depression and T-wave inversions across the anterolateral leads. Follow-up tracing notes improvement in the ST and T changes.
[2018-11-19] MEDS: PANTOprazole 40 MG TAB PO SCH (14:36)
[2018-11-19] MEDS: CALCIUM 600MG + VIT D 400 IU TAB PO SCH ×2 (14:37→20:27)
[2018-11-19] MEDS: ATORVASTATIN 40 MG TAB PO SCH (14:37)
[2018-11-19] MEDS: ACETAMINOPHEN 325 MG TAB PO PRN (14:38)
[2018-11-19 19:40] LABS: Partial Thromboplastin Ratio 3.3
[2018-11-19 19:52] LABS: Partial Thromboplastin Time 85.4 Seconds (21.0-31.0)
[2018-11-19] MEDS ORDERED: FUROSEMIDE 20 MG in SYRINGE 0 ML IV ONE (21:00)
--- NOTE | 2018-11-19 22:52 | XRay Report ---
XR chest 1V portable CLINICAL HISTORY: CHF dyspnea COMPARISON STUDY: 11/19/2018 FINDINGS: Findings a developing components of congestive heart failure. Moderate increase in cardiac size. Median sternotomy. Very small bilateral pleural effusions. IMPRESSION: Progressive congestive heart failure. The above report was generated using voice recognition software. It may contain grammatical, syntax or spelling errors. Electronically signed by: Yasmany Squires M.D. 11/19/2018 10:50 PM
[2018-11-19] MEDS ORDERED: FUROSEMIDE 40 MG in SYRINGE 0 ML IV ONE (23:11)
[2018-11-19] MEDS ORDERED: FUROSEMIDE 20 MG in SYRINGE 0 ML IV STA (23:14)
--- NOTE | 2018-11-19 23:14 | Internal Med Progress Note ---
Date of Service November 19, 2018 Assessment & Plan (1) NSTEMI (non-ST elevated myocardial infarction): The pt was admitted AM with an NSTEMI and placed on appropriate anticoagulation, diuresed for CHF and assigned to telemetry pending an eventual cath. She has become hypotensive while remaining overloaded so that we have transferred her to the ICU with intent to give inotropic support and diuretics. After discussion with cardiology, the pt will proceed to the minilab operator due to hemodynamic instability and an NSTEMI. She is clinically asymptomatic although requiring high-flow 02. Repeat EKG did not sow significant changes. A CXR is pending. Will follow up when she returns from the lab. Physical Exam 2 Vital Signs (Past 24 Hours): Last Vital Signs Temp 36.6 C 11/19/18 20:30 Pulse 78 11/19/18 20:30 Resp 20 11/19/18 20:30 BP 80/47 L 11/19/18 20:30 Pulse Ox 90 11/19/18 20:30
[2018-11-19] MEDS ORDERED: DOBUTamine 500MG / 250ML D5W IV ONE (23:21)
[2018-11-19] MEDS: DOBUTamine / D5W 500 MG/250 ML BAG IV PRN (23:27)
[2018-11-19] MEDS ORDERED: MIDAZOLAM HCL 1 MG/ML 2ML VIAL ONE (23:35)
[2018-11-19] MEDS ORDERED: fentaNYL citrate 100 MCG/2 ML VIAL ONE (23:36)
[2018-11-19] MEDS ORDERED: LIDOCAINE HCL 1% 20 ML VIAL ONE (23:36)
[2018-11-19] MEDS ORDERED: HEPARIN (PORCINE) 1000 UNIT/ML 10 ML (CATH LAB USE ONLY) ONE (23:36)
[2018-11-19] MEDS ORDERED: NOREPINEPHRINE BITARTRATE 1 MG/ML 4 ML VIAL (CATH LAB USE ONLY) ONE (23:39)
[2018-11-19] MEDS ORDERED: FUROSEMIDE 40 MG/4 ML VIAL IV ONE (23:45)
--- NOTE | 2018-11-19 23:50 | Pre Anesthesia Assessment ---
Date of Service November 19, 2018 Pre Sedation Assessment Vital Signs Temp Pulse Pulse Resp BP BP Pulse Ox 11/19/18 23:15 83 20 93/59 L 89 L 11/19/18 20:30 36.6 C 78 20 80/47 L 90 11/19/18 19:45 11/19/18 19:34 36.7 C 72 20 83/52 L 94 11/19/18 17:07 97/65 L 11/19/18 15:56 36.5 C 75 18 95/61 L 91 11/19/18 15:28 101/53 L 11/19/18 14:30 95/65 L 11/19/18 14:00 95/67 L 11/19/18 12:39 20 90/60 L 90 11/19/18 11:37 37.1 C 76 20 89/55 L 90 11/19/18 11:10 67 18 91/54 L 92 11/19/18 10:11 68 16 96/50 L 89 L 11/19/18 08:20 86 16 105/57 L 90 11/19/18 07:22 85 18 113/56 L 93 11/19/18 06:45 82 16 108/59 L 95 11/19/18 06:30 81 18 93 11/19/18 06:15 93 H 32 H 92 11/19/18 06:12 94 H 24 91 11/19/18 06:09 36.4 C L 93 H 24 134/56 L 91 11/19/18 06:07 93 H 29 H 134/56 L 90 Pulse Ox 11/19/18 23:15 11/19/18 20:30 11/19/18 19:45 90 11/19/18 19:34 11/19/18 17:07 11/19/18 15:56 11/19/18 15:28 11/19/18 14:30 11/19/18 14:00 11/19/18 12:39 11/19/18 11:37 11/19/18 11:10 11/19/18 10:11 11/19/18 08:20 11/19/18 07:22 11/19/18 06:45 11/19/18 06:30 11/19/18 06:15 11/19/18 06:12 11/19/18 06:09 01/05/19 06:07 Cardiovascular RRR, no murmur, no edema Respiratory normal respiratory effort, lungs clear to auscultation Pre-Sedation Airway Assessment Smoking Status: Former smoker Hx Sleep Apnea: No Hx Difficult Intubation: No Short, Thick Neck: No Thyromental Distance: > or= 3.5 Finger Breadths Oral Cavity: + Dental Abnormalities Mallampati Class: III Procedure Planning Contraindications for Sedation: none Current Medications Reviewed: Yes Notes The planned sedation has been discussed with the patient. Informed Consent was obtained. I have identified the patient, determined the appropriateness of sedation and have assessed the patient immediately prior to the procedure. All medicine(s) and interventions are by my order.
--- NOTE | 2018-11-19 23:50 | Post Anesthesia Assessment ---
Date of Service November 19, 2018 Post Sedation Assessment Vital Signs Temp Pulse Pulse Resp BP BP Pulse Ox 11/19/18 23:15 83 20 93/59 L 89 L 11/19/18 20:30 36.6 C 78 20 80/47 L 90 11/19/18 19:45 11/19/18 19:34 36.7 C 72 20 83/52 L 94 11/19/18 17:07 97/65 L 11/19/18 15:56 36.5 C 75 18 95/61 L 91 11/19/18 15:28 101/53 L 11/19/18 14:30 95/65 L 11/19/18 14:00 95/67 L 11/19/18 12:39 20 90/60 L 90 11/19/18 11:37 37.1 C 76 20 89/55 L 90 11/19/18 11:10 67 18 91/54 L 92 11/19/18 10:11 68 16 96/50 L 89 L 11/19/18 08:20 86 16 105/57 L 90 11/19/18 07:22 85 18 113/56 L 93 11/19/18 06:45 82 16 108/59 L 95 11/19/18 06:30 81 18 93 11/19/18 06:15 93 H 32 H 92 11/19/18 06:12 94 H 24 91 11/19/18 06:09 36.4 C L 93 H 24 134/56 L 91 11/19/18 06:07 93 H 29 H 134/56 L 90 Pulse Ox 11/19/18 23:15 11/19/18 20:30 11/19/18 19:45 90 11/19/18 19:34 11/19/18 17:07 11/19/18 15:56 11/19/18 15:28 11/19/18 14:30 11/19/18 14:00 11/19/18 12:39 11/19/18 11:37 11/19/18 11:10 11/19/18 10:11 11/19/18 08:20 11/19/18 07:22 11/19/18 06:45 11/19/18 06:30 11/19/18 06:15 11/19/18 06:12 11/19/18 06:09 01/05/19 06:07 Recovery Score Activity: Moves 4 extremities Respiration: Deep Breath/Cough Circulation: +/-20% PreAnes Value Consciousness: Fully Awake Oxygen Saturation: O2 needed for >90% Discharge Sedation Level of Care: Fast Track Phase II Post Sedation Plan On clinical assessment, the patient appears to have tolerated the sedation without complications. Patient is recovering as anticipated. Patient will continue to be monitored by nursing and may be discharged when sedation discharge criteria are met per below protocol. Upon Completions of procedure and additional 15 minutes continue every 5 minute vital signs and the P.A.R. score; then discharge to a Phase I or Fast Track to Phase II per the following guidelines: * Discharge Patient to appropriate Phase II area if PAR is 8 or greater or return to pre- procedure baseline. The post - procedure orders will be as directed. * If PAR score is less than 8 or not return to pre-procedure baseline then patient will follow Phase I monitoring till PAR is reached for Phase II. The Phase I may be done in procedure room or may call to secure a Phase I area. * If naloxone or flumazenil are used for reversal, hold in Phase I for continued monitoring from when last reversal dose was given for a minimum of 60 minutes or longer pending the nurse and/or physician discretion of patient condition before discharge to Phase II. Please call the Sedation Physician to re-evaluate and complete post-note for discharge to Phase II area. Do NOT discharge from procedure sedation or Phase 1 until post- sedation evaluation note is complete by procedure /sedation MD Sedation Discharge Instructions to be given to the patient at discharge to home.
[2018-11-20] MEDS ORDERED: NiCARDipine HCL INJ 2.5 MG/ML 10 ML AMP ONE (00:15)
[2018-11-20] MEDS ORDERED: NITROGLYCERIN/D5W 100MCG/ML 20ML SYR ONE (00:15)
[2018-11-20 01:24] LABS: iSTAT Arterial Blood Gas HCO3 23 meg/L (19-24); iSTAT Carbon Dioxide 24 mEq/l (24-31)
[2018-11-20 01:24] LABS: iSTAT Arterial Blood Gas HCO3 21 meg/L (19-24); iSTAT Carbon Dioxide 22 mEq/l (24-31)
--- NOTE | 2018-11-20 01:33 | Cardiac Catheterization ---
Cardiac Cath Procedure Full Procedure Date November 19, 2018 Pre-Procedure Diagnosis Pre-Procedure Diagnosis: Non STEMI, CHF and Cardiomyopathy AUC Score AUC Score: 8 Post-Procedure Diagnosis Post-Procedure Diagnosis: Severe CAD, Decreased LV Systolic Function and Elevated Intracardiac Pressures Procedure(s) Performed Procedure(s) Performed: Coronary Angiography, Left Heart Cath, Right Heart Cath , Bypass Graft Angiography, Femoral Artery Angiography and Procedure (Iliac angiography, Subclavian angiography) Boat Canvas Installer Augustus Bower MD Biodiesel Process Control Technician(s) Juan Estimated Blood Loss Estimated Blood Loss: 15 Medication(s) Medication(s): Fentanyl, Lidocaine 1%, Nitroglycerin and Versed Medication(s): Dobutamine Summary of Findings Indication: High risk NSTEMI Patient admitted with acute onset chest pain in the setting of acute coronary syndrome with dynamic lateral ST depressions and elevated troponin to 5. Echo showed global severe LV dysfunction with an EF of 30%. Patient remained chest pain-free but became increasingly hypoxic with pulmonary edema and hypotensive to systolic pressures in the low 80s requiring inotropes and increased diuretics. Access: 6 [place] common femoral artery, 6 Mal[place] left radial artery, 6 [place] right radial artery; 7 [place] right common femoral vein Catheters: JL4, JR4, [place], AR-1, multipurpose, pigtail Findings: LM -heavily calcified, 95-99% ostial stenosis LAD -proximal heavy calcification, 80-90% proximal stenosis, mid segment retro- fills via PERALES to LAD. Distal LAD after anastomosis widely patent. Small first and second diagonal with diffuse disease Circumflex -proximal heavy calcification with chronic 100% proximal occlusion. Distal OM 2 widely patent after anastomosis of vein graft. Mid circumflex, left PLB retro-fills from vein graft and has only mild disease. Left to right collaterals from circumflex. RCA -calcified, 100% chronic proximal occlusion PERALES to LADwidely patent. Prior to PERALES takeoff left subclavian severely calcified with 90 % proximal stenosis. 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 TR bands for left radial and right radial artery access sites Summary: 1. Extensively calcified, severe multivessel [place] coronary artery disease -95-99% ostial left main 100% proximal circumflex 100% proximal RCAfills via left to right collaterals primarily from circumflex 2. Patent PERALES to LAD. 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 Widely patent SVG to circumflex 4. Cardiogenic shock. Low cardiac output on dobutamine 2.5 with PA Sat 44%. 5. Acute on chronic systolic heart failure. Elevated left and right-sided filling pressures. -700 after 80 IV Lasix. 6. Occlusive aortoright common iliac disease Recommendations: No high risk lesions amenable to intervention. Continue medical management for coronary artery disease. Attempts at intervention to proximal subclavian would be extremely high risk. Continue heparin infusion for 48 hours (resume after TR band is removed with access site hemostasis). Continue dual antiplatelet therapy with aspirin, clopidogrel Returned to ICU on dobutamine 5 mcg Continue IV diuresis Hemodynamics Rest Ao:: 123/37/71 Final Ao: 118/49/69 LV: 110/19 Recommendations Recommendations: Medical Therapy and/or Counseling Specimens Specimens: None Radiation Exposure (mGy) 1638 Contrast (mls) 110 Drains Drains: None Anesthesia Moderate Procedural Complication(s) None Disposition ICU ACC Data: Agricultural Lender Cardiac Status Clinical evaluation leading to the procedure CAD Presenation: Non STEMI Anginal Classification: CCS IV Heart Failure: NYHA Class: CCS IV Cardiogenic Shock within 24 Hours: Yes Diagnostic Physicians Name: uAgustus Bower MD Closure Device Closure Device: Mynx Recommendations: Medical Therapy and/or Counseling Intraprocedure Events Significant Disection: No Perforation: No
[2018-11-20 01:37] LABS: iSTAT Arterial Blood Gas HCO3 23 meg/L (19-24); iSTAT Carbon Dioxide 24 mEq/l (24-31)
[2018-11-20 02:32] LABS: Partial Thromboplastin Ratio 1.7; Partial Thromboplastin Time 42.9 Seconds (21.0-31.0)
[2018-11-20 04:43] LABS: Hematocrit (blood only) 30.8 % (37-47); Hemoglobin 9.8 g/dL (12.0-16.0); Mean Corpuscular Hgb Conc 31.8 g/dL (32-36); Mean Corpuscular Volume 93.3 fL (80-100); Mean Platelet Volume 10.9 fL (7.4-10.4); Platelet Count 209 K/uL (130-400); RDW Coefficient of Variation 13.3 % (11.5-14.5); RDW Standard Deviation 45.2 fL (36.4-46.3); White Blood Count 13.14 K/uL (4.8-10.8)
[2018-11-20 05:00] LABS: Albumin Level 3.1 gm/dl (3.4-5.0); BUN Creatinine Ratio 23.3 (10-20); Calcium 8.6 mg/dl (8.5-10.1); Creatinine Clr Calc Pharmacy 19.3 ml/min; Est GFR (Non-African American) 27.6; Potassium 3.9 mmol/L (3.5-5.1)
[2018-11-20 05:18] LABS: Albumin Globulin Ratio 0.9 (0.9-2); Bilirubin,Total 0.6 mg/dl (0.2-1); Globulin 3.4 gm/dl (2.5-4.0); Total Protein 6.5 gm/dl (6.4-8.2); Troponin I 3.66 ng/ml (0-0.045)
[2018-11-20] MEDS: ATORVASTATIN 40 MG TAB PO SCH (08:19)
[2018-11-20] MEDS: ASPIRIN 81 MG ECTAB PO SCH (08:19)
[2018-11-20] MEDS: PANTOprazole 40 MG TAB PO SCH (08:19)
[2018-11-20] MEDS: CLOPIDOGREL BISULFATE 75 MG TAB PO SCH (08:19)
[2018-11-20] MEDS: NITROGLYCERIN 2% OINTMENT 30GM TUBE EXT SCH (08:22)
--- NOTE | 2018-11-20 10:49 | XRay Report ---
SINGLE VIEW CHEST CLINICAL HISTORY: Dyspnea. FINDINGS: An AP, portable, upright chest radiograph is compared to study performed earlier the same d ay 11/19/2018. The examination is degraded by portable technique and patient rotation. The patient is s tatus post midline sternotomy. The heart is enlarged and there is atherosclerotic calcification of th e thoracic aorta. Pulmonary vascular congestion and interstitial edema are similar to today's earlier examination. There are small pleural effusions with bibasilar consolidation. No pneumothorax is seen . The skeletal structures are osteopenic. The bony thorax is grossly intact. 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 Superior subluxation of the humeral heads suggest chronic rotator cuff inju hector. IMPRESSION: 1. Cardiomegaly with evidence of congestive failure and interstitial edema. This is unchanged from to day's earlier examination. 2. Small pleural effusions with bibasilar consolidation are again noted. Electronically signed by: Jg Ibarra M.D. 11/20/2018 10:48 AM
--- NOTE | 2018-11-20 11:00 | Hospitalist Progress Note ---
Date of Service November 20, 2018 Assessment & Plan (1) NSTEMI (non-ST elevated myocardial infarction): The pt was admitted AM with an NSTEMI and placed on appropriate anticoagulation, diuresed for CHF and assigned to telemetry pending an eventual cath. She has become hypotensive while remaining overloaded so that we have transferred her to the ICU with intent to give inotropic support and diuretics. 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 She is clinically asymptomatic although requiring high-flow 02. Repeat EKG did not sow significant changes. A CXR is pending. Will follow up when she returns from the lab. Subjective Review of Systems All systems reviewed & are unremarkable except as noted in HPI & below Constitutional: + weakness; no fever and no chills Respiratory: + dyspnea; no cough Cardiovascular: no chest pain, no chest pain at rest, no chest pain with activity, no radiating jaw, neck or arm pain, no palpitations and no edema Gastrointestinal: no abdominal pain, no nausea, no vomiting, no constipation, no diarrhea/loose stools, no blood in stools and no melena Genitourinary (Female): no hematuria Musculoskeletal: no joint pain Allergy / Immunological: no rash Physical Exam 2 Vital Signs (Past 24 Hours): Last Vital Signs Temp 36.8 C 11/20/18 08:00 Pulse 91 H 11/20/18 10:31 Resp 20 11/20/18 10:31 BP 105/54 L 11/20/18 10:31 Pulse Ox 92 11/20/18 10:31 Results & Data Laboratory Results 11/20/18 11/20/18 11/20/18 Range/Units 04:30 04:30 01:53 WBC 13.14 H (4.8-10.8) K/uL RBC 3.30 L (4.2-5.4) M/uL Hgb 9.8 L (12.0-16.0) g/dL Hct 30.8 L (37-47) % MCV 93.3 (80-100) fL MCH 29.7 (25-34) pg MCHC 31.8 L (32-36) g/dL RDW Std Deviation 45.2 (36.4-46.3) fL RDW Coeff of [place]air[place] 13.3 (11.5-14.5) % Plt Count 209 (130-400) K/uL MPV 10.9 H (7.4-10.4) fL APTT 42.9 H (21.0-31.0) Seconds PTT Ratio 1.7 Activ Coag Time Kaolin (94-140) SECONDS POC pH (7.35-7.45) POC pCO2 (35-46) mmHg POC pO2 (80-95) mmHg POC HCO3 (19-24) bertha/L POC Total CO2 (24-31) mEq/l POC Base Excess (-9-1.8) bertha/L POC ABG O2 Sat (90-95) % Sodium 136 (136-145) mmol/L Potassium 3.9 (3.5-5.1) mmol/L Chloride 101 (98-107) mmol/L Carbon Dioxide 25 (21-32) mmol/L Anion Gap 10.0 (3-11) BUN 39 H (7-18) mg/dl Creatinine 1.66 H (0.6-1.2) mg/dl Est Cr Clr Drug Dosing 19.3 ml/min Est GFR ( Amer) 32.0 Est GFR (Non-Af Amer) 27.6 BUN/Creatinine Ratio 23.3 H (10-20) Glucose 115 H (70-99) mg/dl Calcium 8.6 (8.5-10.1) mg/dl Total Bilirubin 0.6 (0.2-1) mg/dl AST 79 H (15-37) U/L ALT 13 (12-78) U/L Alkaline Phosphatase 76 (45-117) U/L Troponin I 3.660 H* (0-0.045) ng/ml NT-Pro-B Natriuret Pep (0-1800) pg/ml Total Protein 6.5 (6.4-8.2) gm/dl Albumin 3.1 L (3.4-5.0) gm/dl Globulin 3.4 (2.5-4.0) gm/dl Albumin/Globulin Ratio 0.9 (0.9-2) 11/20/18 11/20/18 11/20/18 Range/Units 01:25 01:05 01:02 WBC (4.8-10.8) K/uL RBC (4.2-5.4) M/uL Hgb (12.0-16.0) g/dL Hct (37-47) % MCV (80-100) fL MCH (25-34) pg MCHC (32-36) g/dL RDW Std Deviation (36.4-46.3) fL RDW Coeff of [place]air[place] (11.5-14.5) % Plt Count (130-400) K/uL MPV (7.4-10.4) fL APTT (21.0-31.0) Seconds PTT Ratio Activ Coag Time Kaolin (94-140) SECONDS POC pH 7.38 7.41 7.39 (7.35-7.45) POC pCO2 38 33 L 39 (35-46) mmHg POC pO2 35 L 54 L < 32 L (80-95) mmHg POC HCO3 23 21 23 (19-24) bertha/L POC Total CO2 24 22 L 24 (24-31) mEq/l POC Base Excess -3.0 -4.0 -2.0 (-9-1.8) bertha/L POC ABG O2 Sat 66.0 L 89.0 L 44.0 L (90-95) % Sodium (136-145) mmol/L Potassium (3.5-5.1) mmol/L Chloride (98-107) mmol/L Carbon Dioxide (21-32) mmol/L Anion Gap (3-11) BUN (7-18) mg/dl Creatinine (0.6-1.2) mg/dl Est Cr Clr Drug Dosing ml/min Est GFR ( Amer) Est GFR (Non-Af Amer) BUN/Creatinine Ratio (10-20) Glucose (70-99) mg/dl Calcium (8.5-10.1) mg/dl Total Bilirubin (0.2-1) mg/dl AST (15-37) U/L ALT (12-78) U/L Alkaline Phosphatase (45-117) U/L Troponin I (0-0.045) ng/ml NT-Pro-B Natriuret Pep (0-1800) pg/ml Total Protein (6.4-8.2) gm/dl Albumin (3.4-5.0) gm/dl Globulin (2.5-4.0) gm/dl Albumin/Globulin Ratio (0.9-2) 01/06/19 01/05/19 01/05/19 Range/Units 00:33 23:18 19:04 WBC (4.8-10.8) K/uL RBC (4.2-5.4) M/uL Hgb (12.0-16.0) g/dL Hct (37-47) % MCV (80-100) fL MCH (25-34) pg MCHC (32-36) g/dL RDW Std Deviation (36.4-46.3) fL RDW Coeff of [place]air[place] (11.5-14.5) % Plt Count (130-400) K/uL MPV (7.4-10.4) fL APTT 85.4 H* (21.0-31.0) Seconds PTT Ratio 3.3 Activ Coag Time Kaolin 158 H (94-140) SECONDS POC pH (7.35-7.45) POC pCO2 (35-46) mmHg POC pO2 (80-95) mmHg POC HCO3 (19-24) bertha/L POC Total CO2 (24-31) mEq/l POC Base Excess (-9-1.8) bertha/L POC ABG O2 Sat (90-95) % Sodium (136-145) mmol/L Potassium (3.5-5.1) mmol/L Chloride (98-107) mmol/L Carbon Dioxide (21-32) mmol/L Anion Gap (3-11) BUN (7-18) mg/dl Creatinine (0.6-1.2) mg/dl Est Cr Clr Drug Dosing ml/min Est GFR ( Amer) Est GFR (Non-Af Amer) BUN/Creatinine Ratio (10-20) Glucose (70-99) mg/dl Calcium (8.5-10.1) mg/dl Total Bilirubin (0.2-1) mg/dl AST (15-37) U/L ALT (12-78) U/L Alkaline Phosphatase (45-117) U/L Troponin I 5.910 H* (0-0.045) ng/ml NT-Pro-B Natriuret Pep (0-1800) pg/ml Total Protein (6.4-8.2) gm/dl Albumin (3.4-5.0) gm/dl Globulin (2.5-4.0) gm/dl Albumin/Globulin Ratio (0.9-2) 11/19/18 11/19/18 Range/Units 18:04 12:14 WBC (4.8-10.8) K/uL RBC (4.2-5.4) M/uL Hgb (12.0-16.0) g/dL Hct (37-47) % MCV (80-100) fL MCH (25-34) pg MCHC (32-36) g/dL RDW Std Deviation (36.4-46.3) fL RDW Coeff of [place]air[place] (11.5-14.5) % Plt Count (130-400) K/uL MPV (7.4-10.4) fL APTT (21.0-31.0) Seconds PTT Ratio Activ Coag Time Kaolin (94-140) SECONDS POC pH (7.35-7.45) POC pCO2 (35-46) mmHg POC pO2 (80-95) mmHg POC HCO3 (19-24) bertha/L POC Total CO2 (24-31) mEq/l POC Base Excess (-9-1.8) bertha/L POC ABG O2 Sat (90-95) % Sodium (136-145) mmol/L Potassium (3.5-5.1) mmol/L Chloride (98-107) mmol/L Carbon Dioxide (21-32) mmol/L Anion Gap (3-11) BUN (7-18) mg/dl Creatinine (0.6-1.2) mg/dl Est Cr Clr Drug Dosing ml/min Est GFR ( Amer) Est GFR (Non-Af Amer) BUN/Creatinine Ratio (10-20) Glucose (70-99) mg/dl Calcium (8.5-10.1) mg/dl Total Bilirubin (0.2-1) mg/dl AST (15-37) U/L ALT (12-78) U/L Alkaline Phosphatase (45-117) U/L Troponin I 5.030 H* 2.240 H* (0-0.045) ng/ml NT-Pro-B Natriuret Pep 79081 H (0-1800) pg/ml Total Protein (6.4-8.2) gm/dl Albumin (3.4-5.0) gm/dl Globulin (2.5-4.0) gm/dl Albumin/Globulin Ratio (0.9-2)
[2018-11-20] MEDS: FUROSEMIDE 100 MG in DEXTROSE 5% 90 ML IV SCH (11:09)
[2018-11-20] MEDS: HEPARIN STANDARD DEXTROSE 25,000 UNITS/500 ML IV SCH (11:09)
--- NOTE | 2018-11-20 11:13 | Hospitalist Progress Note ---
Date of Service November 20, 2018 Assessment & Plan (1) NSTEMI (non-ST elevated myocardial infarction): - Presented with acute chest pain related to NSTEMI; Troponin peaked at 5.9, now trending down. - Upgraded to ICU overnight following cardiac cath for close monitoring. 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 - Cardiology following, appreciate input. - Will continue Heparin infusion for 48 hours; also continue dual anti-platelet therapy with ASA/Plavix. - Started low dose Metoprolol 12.5 mg BID at admission -- pt. was not able to tolerate beta-blockade in the past due to bradycardia. On hold for now for hypotension - Continue statin as prescribed. (2) Elevated troponin: - Related to NSTEMI; Trop peaked at 5.9. (3) Acute on chronic combined systolic and diastolic heart failure: - BNP >22,000 at admission; has ongoing hypoxia related to HF exacerbation. - TTE in 2013 showed EF 40-45%, grade I diastolic dysfunction. - TTE during this admission: EF 30-35% and left atrial dilation. - CXR with findings consistent with acute CHF; repeat CXR ordered in the morning. - Monitor strict I/O's and daily weights - has yepez catheter for I/O's, net negative 1400 since admission. - Received Lasix 40 mg IV in ER then 80 mg IV overnight; will start Lasix drip at 5 mg/hr (on Dobutamine drip for hypotension) -Has [facility] catheter in place and monitoring wedge pressures - Holding home ACEI due to hypotension; started BB as noted above although also on hold for hypotension. (4) Acute respiratory failure with hypoxia: - Likely related to acute CHF exacerbation. - Was requiring high flow oxygen overnight, now weaned to 3L via NC. - Treatment of CHF as noted above. (5) Cardiogenic shock: - Will continue Dobutamine drip in the ICU. - Hypotension now improved, SBP 90's. -[facility] catheter in place for close monitoring of pulmonary pressures- appreciate management of pulmonary/critical care (6) Ischemic cardiomyopathy: - Echo June 2014 showed EF 40-45% with inferoposterior wall motion abnormality. - Repeat echo showed EF 30-35% with no wall motion abnormality noted. (7) Acute kidney injury: - Creatinine remains elevated, was 1.6 on morning labs. - Monitor renal function closely. - Diuresis as noted above. (8) Chronic kidney disease, stage 3: - Renally dose all medications. Baseline creatinine around 1.3 (9) Coronary artery disease: - Status post CABG x 2 in 2013 (PERALES to the LAD, an SVG to the OM2); follows with Dr. Hodges. - Consulted cardiology, s/p cardiac cath as noted above. With severe disease not amenable to intervention at this time due to being high risk (10) QT prolongation: - Most recent QTc was 519. - Avoid QT prolonging agents if possible. (11) Hyperlipidemia: - Continue statin as prescribed. (12) Hypertension: - H/o HTN, on Amlodipine and Lisinopril at home -- holding meds due to cardiogenic shock requiring Dobutamine drip. (13) Anemia: - Hemoglobin decreased to 9.8; repeat hemoglobin was 9.2 this afternoon. - Hemoccult stool pending. - Monitor CBC closely especially in the setting of being on anticoagulation and dual antiplatelet therapy. (14) Leukocytosis: - WBC 13.14, unclear etiology. - Will order u/a to evaluate for UTI. - CXR negative for infection. (15) Fall: - S/p recent fall within last 2 weeks. - CT head was negative. - Consider left lower extremity xrays for acute pain. (16) GERD (gastroesophageal reflux disease): -Continue PPI. (17) DVT prophylaxis: - Heparin drip. FEN/GI: Heart healthy diet; No IVFs indicated. DNR/DNI -- confirmed on day of admission. Lines: PA Catheter, Yepez Dispo: ICU for close monitoring s/p cardiac cath overnight; cardiology and ICU team following. Supervising Physician Co-Signing Physician Notes PA Supervision Note: I did not personally see or examine the patient today, but I verified all early points of VINNY Santos's assessment and plan with the following exceptions/ additions: None Subjective Patient is status post cardiac cath last evening, doing well this morning. She is requiring 3L via NC, previously on Oxymask at 7L. Denies SOB, chest pain, nausea or vomiting, arm or jaw discomfort. Yepez was placed last night with good urine output -- she did receive Lasix 80 mg IV around 2 AM. Had a BM yesterday, denies constipation. She was upgraded to ICU following cardiac cath, ICU team consulted. Review of Systems All systems reviewed & are unremarkable except as noted in HPI & below Constitutional: + weakness; no fever and no chills Respiratory: + dyspnea and + dyspnea on exertion; no cough Cardiovascular: no chest pain, no palpitations and no edema Gastrointestinal: no abdominal pain, no nausea, no vomiting, no constipation, no diarrhea/loose stools, no blood in stools and no melena Genitourinary (Female): no hematuria Musculoskeletal: no joint pain Allergy / Immunological: no rash Physical Exam 2 Vital Signs (Past 24 Hours): Last Vital Signs Temp 36.8 C 11/20/18 08:00 Pulse 91 H 11/20/18 10:31 Resp 20 11/20/18 10:31 BP 105/54 L 11/20/18 10:31 Pulse Ox 92 11/20/18 10:31 Physical Exam: General: Resting comfortably, in no acute distress. HEENT: NC/AT; PERRLA with EOMI; [place] conjunctiva, MMM. Neck: Supple and nontender Cardiac: RRR Lungs: on 3L via NC; bilateral lower base crackles, clear to auscultation in upper lung sinclair. Abdomen: Bowel normoactive X 4; Nontender to palpation Extremities: Warm. No edema present in bilat LE. Neuro: No focal weakness Skin: No rash Results & Data Laboratory Results 11/20/18 11/20/18 11/20/18 Range/Units 04:30 04:30 01:53 WBC 13.14 H (4.8-10.8) K/uL RBC 3.30 L (4.2-5.4) M/uL Hgb 9.8 L (12.0-16.0) g/dL Hct 30.8 L (37-47) % MCV 93.3 (80-100) fL MCH 29.7 (25-34) pg MCHC 31.8 L (32-36) g/dL RDW Std Deviation 45.2 (36.4-46.3) fL RDW Coeff of Bairon 13.3 (11.5-14.5) % Plt Count 209 (130-400) K/uL MPV 10.9 H (7.4-10.4) fL APTT 42.9 H (21.0-31.0) Seconds PTT Ratio 1.7 Activ Coag Time Kaolin (94-140) SECONDS POC pH (7.35-7.45) POC pCO2 (35-46) mmHg POC pO2 (80-95) mmHg POC HCO3 (19-24) bertha/L POC Total CO2 (24-31) mEq/l POC Base Excess (-9-1.8) bertha/L POC ABG O2 Sat (90-95) % Sodium 136 (136-145) mmol/L Potassium 3.9 (3.5-5.1) mmol/L Chloride 101 (98-107) mmol/L Carbon Dioxide 25 (21-32) mmol/L Anion Gap 10.0 (3-11) BUN 39 H (7-18) mg/dl Creatinine 1.66 H (0.6-1.2) mg/dl Est Cr Clr Drug Dosing 19.3 ml/min Est GFR ( Amer) 32.0 Est GFR (Non-Af Amer) 27.6 BUN/Creatinine Ratio 23.3 H (10-20) Glucose 115 H (70-99) mg/dl Calcium 8.6 (8.5-10.1) mg/dl Total Bilirubin 0.6 (0.2-1) mg/dl AST 79 H (15-37) U/L ALT 13 (12-78) U/L Alkaline Phosphatase 76 (45-117) U/L Troponin I 3.660 H* (0-0.045) ng/ml NT-Pro-B Natriuret Pep (0-1800) pg/ml Total Protein 6.5 (6.4-8.2) gm/dl Albumin 3.1 L (3.4-5.0) gm/dl Globulin 3.4 (2.5-4.0) gm/dl Albumin/Globulin Ratio 0.9 (0.9-2) 11/20/18 11/20/18 11/20/18 Range/Units 01:25 01:05 01:02 WBC (4.8-10.8) K/uL RBC (4.2-5.4) M/uL Hgb (12.0-16.0) g/dL Hct (37-47) % MCV (80-100) fL MCH (25-34) pg MCHC (32-36) g/dL RDW Std Deviation (36.4-46.3) fL RDW Coeff of Bairon (11.5-14.5) % Plt Count (130-400) K/uL MPV (7.4-10.4) fL APTT (21.0-31.0) Seconds PTT Ratio Activ Coag Time Kaolin (94-140) SECONDS POC pH 7.38 7.41 7.39 (7.35-7.45) POC pCO2 38 33 L 39 (35-46) mmHg POC pO2 35 L 54 L < 32 L (80-95) mmHg POC HCO3 23 21 23 (19-24) bertha/L POC Total CO2 24 22 L 24 (24-31) mEq/l POC Base Excess -3.0 -4.0 -2.0 (-9-1.8) bertha/L POC ABG O2 Sat 66.0 L 89.0 L 44.0 L (90-95) % Sodium (136-145) mmol/L Potassium (3.5-5.1) mmol/L Chloride (98-107) mmol/L Carbon Dioxide (21-32) mmol/L Anion Gap (3-11) BUN (7-18) mg/dl Creatinine (0.6-1.2) mg/dl Est Cr Clr Drug Dosing ml/min Est GFR ( Amer) Est GFR (Non-Af Amer) BUN/Creatinine Ratio (10-20) Glucose (70-99) mg/dl Calcium (8.5-10.1) mg/dl Total Bilirubin (0.2-1) mg/dl AST (15-37) U/L ALT (12-78) U/L Alkaline Phosphatase (45-117) U/L Troponin I (0-0.045) ng/ml NT-Pro-B Natriuret Pep (0-1800) pg/ml Total Protein (6.4-8.2) gm/dl Albumin (3.4-5.0) gm/dl Globulin (2.5-4.0) gm/dl Albumin/Globulin Ratio (0.9-2) 11/20/18 11/19/18 11/19/18 Range/Units 00:33 23:18 19:04 WBC (4.8-10.8) K/uL RBC (4.2-5.4) M/uL Hgb (12.0-16.0) g/dL Hct (37-47) % MCV (80-100) fL MCH (25-34) pg MCHC (32-36) g/dL RDW Std Deviation (36.4-46.3) fL RDW Coeff of Bairon (11.5-14.5) % Plt Count (130-400) K/uL MPV (7.4-10.4) fL APTT 85.4 H* (21.0-31.0) Seconds PTT Ratio 3.3 Activ Coag Time Kaolin 158 H (94-140) SECONDS POC pH (7.35-7.45) POC pCO2 (35-46) mmHg POC pO2 (80-95) mmHg POC HCO3 (19-24) bertha/L POC Total CO2 (24-31) mEq/l POC Base Excess (-9-1.8) bertha/L POC ABG O2 Sat (90-95) % Sodium (136-145) mmol/L Potassium (3.5-5.1) mmol/L Chloride (98-107) mmol/L Carbon Dioxide (21-32) mmol/L Anion Gap (3-11) BUN (7-18) mg/dl Creatinine (0.6-1.2) mg/dl Est Cr Clr Drug Dosing ml/min Est GFR ( Amer) Est GFR (Non-Af Amer) BUN/Creatinine Ratio (10-20) Glucose (70-99) mg/dl Calcium (8.5-10.1) mg/dl Total Bilirubin (0.2-1) mg/dl AST (15-37) U/L ALT (12-78) U/L Alkaline Phosphatase (45-117) U/L Troponin I 5.910 H* (0-0.045) ng/ml NT-Pro-B Natriuret Pep (0-1800) pg/ml Total Protein (6.4-8.2) gm/dl Albumin (3.4-5.0) gm/dl Globulin (2.5-4.0) gm/dl Albumin/Globulin Ratio (0.9-2) 11/19/18 11/19/18 Range/Units 18:04 12:14 WBC (4.8-10.8) K/uL RBC (4.2-5.4) M/uL Hgb (12.0-16.0) g/dL Hct (37-47) % MCV (80-100) fL MCH (25-34) pg MCHC (32-36) g/dL RDW Std Deviation (36.4-46.3) fL RDW Coeff of Bairon (11.5-14.5) % Plt Count (130-400) K/uL MPV (7.4-10.4) fL APTT (21.0-31.0) Seconds PTT Ratio Activ Coag Time Kaolin (94-140) SECONDS POC pH (7.35-7.45) POC pCO2 (35-46) mmHg POC pO2 (80-95) mmHg POC HCO3 (19-24) bertha/L POC Total CO2 (24-31) mEq/l POC Base Excess (-9-1.8) bertha/L POC ABG O2 Sat (90-95) % Sodium (136-145) mmol/L Potassium (3.5-5.1) mmol/L Chloride (98-107) mmol/L Carbon Dioxide (21-32) mmol/L Anion Gap (3-11) BUN (7-18) mg/dl Creatinine (0.6-1.2) mg/dl Est Cr Clr Drug Dosing ml/min Est GFR ( Amer) Est GFR (Non-Af Amer) BUN/Creatinine Ratio (10-20) Glucose (70-99) mg/dl Calcium (8.5-10.1) mg/dl Total Bilirubin (0.2-1) mg/dl AST (15-37) U/L ALT (12-78) U/L Alkaline Phosphatase (45-117) U/L Troponin I 5.030 H* 2.240 H* (0-0.045) ng/ml NT-Pro-B Natriuret Pep 55034 H (0-1800) pg/ml Total Protein (6.4-8.2) gm/dl Albumin (3.4-5.0) gm/dl Globulin (2.5-4.0) gm/dl Albumin/Globulin Ratio (0.9-2)
--- NOTE | 2018-11-20 12:15 | Critical Care Consultation ---
Date of Consultation November 20, 2018 Assessment & Plan (1) Cardiogenic shock: Impression: 1. On chronic hypoxic respiratory failure secondary to CHF. 2. Acute pulmonary edema with CHF exacerbation, EF of 30%, pulmonary artery occlusive pressure is 24. PA pressures are 55/27. 3. History of chronic kidney disease. 4. Hyperlipidemia and hypertension. 5. Recent falls without intracranial injury. Plan: 1. I will start the patient on Lasix drip for diuresis. 2. Agree with heparin drip. 3. Agree with dobutamine drip. 4. We will keep the PA catheter over the next 24 hours to assess the response to the above treatment. 5. Oral intake. 6. ICU core measures has been met. 7. DVT prophylaxis. 8. Discussed with the family at the bedside. 9. Discussed with the staff on rounds and details. 10. Discussed with Dr. Cerna, appreciate her input. Critical care time spent with the patient was 45 minutes. History of Present Illness Reason for Consultation: Non-ST elevation PA, acute pulmonary edema. Requesting Physician: Dr. Cerna. Attending Physician: Imelda Cerna MD History of Present Illness Dear Dr. Cerna, Dear Dr. Bower: Thank you for the kind referral of Mrs. Reyes to critical care service. This is 87-year-old female with a history of coronary artery disease in the past, status post CABG, history of ischemic cardiomyopathy with EF of 30%, acute on chronic kidney disease, hyperlipidemia and hypertension, GERD, who sustained a fall 2 weeks ago with multiple bruises to the left side, the patient did not reported to the hospital, she presented last night to the hospital with increasing shortness of breath that started a few days prior to her presentation. She was unable to ambulate. She also was unable to sleep at night due to the shortness of breath. She did have occasional cough but no sputum production. No hemoptysis reported. She has increased swelling in her ankles and claimed left greater than right after she fell. She did not have any chest pain when I interviewed her, but she was laying comfortably in bed. The patient denies any nausea or vomiting, no constitutional symptoms of fever, no abdominal pain, no change in bowel movements or urine habits, the rest of her review of system was unremarkable. She does have multiple ecchymotic changes in her left lower extremity and left shoulder in addition to left temporal area. The patient noted to have ST changes and positive troponin, she was taken to [facility] by Dr. Bower, the patient had patent bypass grafts, no stentable lesion. The patient had a PA catheter placed for the management of fluid, the patient was transferred to the ICU for further management. Her family history is not contributing to her current illness. The patient is non-smoker lifetime and she lives with her family. Surgical history history with CABG and right knee replacement. Allergies Allergy/AdvReac Type Severity Reaction Status Date / Time No Known Allergies Allergy Mild Verified 11/19/18 06:46 Home Medications Home Medications Medication Instructions Recorded Confirmed Type amlodipine 10 mg PO DAILY 11/19/18 11/19/18 History aspirin [Aspir-81] 81 mg PO DAILY 11/19/18 11/19/18 History atorvastatin 80 mg PO DAILY 11/19/18 11/19/18 History calcium carbonate-vitamin D3 1 tab PO AMPM 11/19/18 11/19/18 History [Caltrate 600 + D] lisinopril 10 mg PO DAILY 11/19/18 11/19/18 History magnesium oxide 400 mg PO DAILY 11/19/18 11/19/18 History meclizine 25 mg PO Q6H PRN 11/19/18 11/19/18 History nitroglycerin [Nitrostat] 0.4 mg SUBLINGUAL UD PRN 11/19/18 11/19/18 History omeprazole 40 mg PO DAILY 11/19/18 11/19/18 History Patient History Medical History CKD (chronic kidney disease), stage III Chronic combined systolic and diastolic heart failure Coronary artery disease GERD (gastroesophageal reflux disease) Hyperlipidemia Hypertension Mitral regurgitation Surgical History H/O right knee surgery History of carotid endarterectomy Previous back surgery S/P CABG x 2 Social History Current Living Situation: Alone Other Information That Helps Us Care for You: No Feels Safe at Home: Yes Safety Concerns: Feels Safe At This Time Smoking Status: Former smoker Do You Dip or Chew Tobacco: No Smoking End Date: 1978 Tobacco Cessation Education Requested by Patient: No Hx Alcohol Use: No Hx Substance Use: No Beliefs That Will Affect Care: None Communication Ability: Effective Review of Systems Review of systems including 14 systems has been unremarkable except for the above. Physical Exam 2 Vital Signs (Past 24 Hours): Last Vital Signs Temp 36.9 C 11/20/18 11:31 Pulse 96 H 11/20/18 11:31 Resp 14 11/20/18 11:31 BP 118/71 11/20/18 11:31 Pulse Ox 94 11/20/18 11:31 Physical Exam: Vital signs are stable, O2 saturation currently 94%, S1-S2 regular rate and rhythm, lungs with bilateral crackles, abdomen is benign, right groin area appeared well maintained, PA catheter through the right groin, ecchymotic changes on the left lower extremity, no edema that I can appreciate to my exam, neuro exam is nonfocal. Results & Data Laboratory Results Her labs were reviewed which showed positive troponin, BUN and creatinine slightly elevated. Diagnostic Findings Chest x-ray with pulmonary edema and small bilateral pleural effusion, cardiomegaly, sternotomy wires. Echocardiogram was reviewed which showed EF of 35%, PA pressure slightly elevated as well. PA catheter showed PA pressure of 55/27 with a wedge of 24. Cardiac output has not been reported.
[2018-11-20 12:18] LABS: Partial Thromboplastin Ratio 1.9
--- NOTE | 2018-11-20 12:18 | Cardiology Progress Note ---
Date of Service November 20, 2018 Assessment & Plan (1) Unstable angina pectoris: The patient presented with an acute coronary syndrome which resulted in a non ST elevation NM. Taken urgently to the cardiac catheterization lab last evening by Dr. Bower and found have severe proximal [place] coronary artery disease. PERALES to the LAD and the SVG to OM 2 were both widely patent. 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 An intervention was felt to be too high risk. Continue medical management. (2) Acute on chronic systolic (congestive) heart failure: The patient has improved with intravenous diuresis. Is now starting a continuous Lasix infusion. Management per the ICU team. (3) Ischemic cardiomyopathy: Echocardiogram on this admission noted moderate left renal dysfunction with global hypokinesis and an ejection fraction of approximately 30%. (4) Coronary artery disease: The patient was diagnosed with coronary artery disease in 2003 and was manage medically until her 2 vessel bypass performed in June 2014. This included an PERALES to the LAD, an SVG to the OM2. (5) Hypertension: Controlled on current medical regimen. Subjective The patient is resting comfortably in bed without complaints of chest pain or dyspnea. Numerous family members at the bedside. Physical Exam 2 Vital Signs (Past 24 Hours): Last Vital Signs Temp 36.9 C 11/20/18 11:31 Pulse 96 H 11/20/18 11:31 Resp 14 11/20/18 11:31 BP 118/71 11/20/18 11:31 Pulse Ox 94 11/20/18 11:31 Physical Exam: In general is well-developed well-nourished elderly white female lying supine in bed without complaints. HEENT exam is negative. Neck is supple with full carotid upstrokes. No carotid bruits. Jugular venous pressure is flat at 90 degrees. There is no thyromegaly. Cardiovascular exam reveals a regular rhythm with a 1/6 basal systolic ejection murmur. A prominent S4 is noted. No S3. Lungs note scattered rhonchi but no rales. Abdomen is soft without bruits. Extremities reveal intact radial pulses bilaterally. Trace pretibial edema is noted. Results & Data Laboratory Results Laboratory Results - last 24 hr 11/19/18 11/19/18 11/19/18 12:14 18:04 19:04 WBC RBC Hgb Hct MCV MCH MCHC RDW Std Deviation RDW Coeff of Bairon Plt Count MPV APTT 85.4 H* PTT Ratio 3.3 Activ Coag Time Kaolin POC pH POC pCO2 POC pO2 POC HCO3 POC Total CO2 POC Base Excess POC ABG O2 Sat Sodium Potassium Chloride Carbon Dioxide Anion Gap BUN Creatinine Est Cr Clr Drug Dosing Est GFR ( Amer) Est GFR (Non-Af Amer) BUN/Creatinine Ratio Glucose POC Glucose Calcium Total Bilirubin AST ALT Alkaline Phosphatase Troponin I 2.240 H* 5.030 H* NT-Pro-B Natriuret Pep 75864 H Total Protein Albumin Globulin Albumin/Globulin Ratio 11/19/18 11/20/18 11/20/18 23:18 00:33 01:02 WBC RBC Hgb Hct MCV MCH MCHC RDW Std Deviation RDW Coeff of Bairon Plt Count MPV APTT PTT Ratio Activ Coag Time Kaolin 158 H POC pH 7.39 POC pCO2 39 POC pO2 < 32 L POC HCO3 23 POC Total CO2 24 POC Base Excess -2.0 POC ABG O2 Sat 44.0 L Sodium Potassium Chloride Carbon Dioxide Anion Gap BUN Creatinine Est Cr Clr Drug Dosing Est GFR ( Amer) Est GFR (Non-Af Amer) BUN/Creatinine Ratio Glucose POC Glucose Calcium Total Bilirubin AST ALT Alkaline Phosphatase Troponin I 5.910 H* NT-Pro-B Natriuret Pep Total Protein Albumin Globulin Albumin/Globulin Ratio 11/20/18 11/20/18 11/20/18 01:05 01:25 01:53 WBC RBC Hgb Hct MCV MCH MCHC RDW Std Deviation RDW Coeff of Bairon Plt Count MPV APTT 42.9 H PTT Ratio 1.7 Activ Coag Time Kaolin POC pH 7.41 7.38 POC pCO2 33 L 38 POC pO2 54 L 35 L POC HCO3 21 23 POC Total CO2 22 L 24 POC Base Excess -4.0 -3.0 POC ABG O2 Sat 89.0 L 66.0 L Sodium Potassium Chloride Carbon Dioxide Anion Gap BUN Creatinine Est Cr Clr Drug Dosing Est GFR ( Amer) Est GFR (Non-Af Amer) BUN/Creatinine Ratio Glucose POC Glucose Calcium Total Bilirubin AST ALT Alkaline Phosphatase Troponin I NT-Pro-B Natriuret Pep Total Protein Albumin Globulin Albumin/Globulin Ratio 11/20/18 11/20/18 11/20/18 04:30 04:30 11:28 WBC 13.14 H RBC 3.30 L Hgb 9.8 L Hct 30.8 L MCV 93.3 MCH 29.7 MCHC 31.8 L RDW Std Deviation 45.2 RDW Coeff of Bairon 13.3 Plt Count 209 MPV 10.9 H APTT PTT Ratio Activ Coag Time Kaolin POC pH POC pCO2 POC pO2 POC HCO3 POC Total CO2 POC Base Excess POC ABG O2 Sat Sodium 136 Potassium 3.9 Chloride 101 Carbon Dioxide 25 Anion Gap 10.0 BUN 39 H Creatinine 1.66 H Est Cr Clr Drug Dosing 19.3 Est GFR ( Amer) 32.0 Est GFR (Non-Af Amer) 27.6 BUN/Creatinine Ratio 23.3 H Glucose 115 H POC Glucose 119 H Calcium 8.6 Total Bilirubin 0.6 AST 79 H ALT 13 Alkaline Phosphatase 76 Troponin I 3.660 H* NT-Pro-B Natriuret Pep Total Protein 6.5 Albumin 3.1 L Globulin 3.4 Albumin/Globulin Ratio 0.9
[2018-11-20 12:20] LABS: Partial Thromboplastin Time 48.5 Seconds (21.0-31.0)
[2018-11-20] MEDS: ACETAMINOPHEN 325 MG TAB PO PRN (13:59)
[2018-11-20 15:06] LABS: Hematocrit (blood only) 28.5 % (37-47); Hemoglobin 9.2 g/dL (12.0-16.0)
[2018-11-20 17:19] LABS: Appearance Urine Cloudy (Clear); Bacteria Urine Automated 2+ (Negative); Bilirubin Urine Negative (Negative); Color Urine Yellow; Epithelial Cell Urine Auto >30 /lpf (0-5); Glucose Urine UA Negative (Negative); Ketones Urine Negative (Negative); Leukocyte Esterase Urine 3+ (Negative); Nitrite Urine Negative (Negative); Protein Urine Negative (Negative); Specific Gravity Urine 1.016 (1.000-1.030); Urobilinogen Urine Negative (Negative); WBC Urine Automated >30 /hpf (0-5)
[2018-11-20] MEDS: MoRPHine SULFATE 2 MG/ML CARP IV PRN ×4 (19:21→21:10)
[2018-11-20] MEDS ORDERED: NITROGLYCERIN/D5W 100 MCG/ML BTL ONE (20:01)
[2018-11-20] MEDS ORDERED: METOPROLOL TARTRATE 1 MG/ML VIAL IV ONE (20:11)
[2018-11-20] MEDS ORDERED: METOPROLOL TARTRATE 1 MG/ML VIAL IV STA (20:13)
[2018-11-20] MEDS ORDERED: NITROGLYCERIN/D5W 100MCG/ML 250 ML IV SCH (20:15)
[2018-11-20] MEDS: cefTRIAXone SODIUM 1,000 MG in DEXTROSE 5% 50 ML IV SCH (20:48)
[2018-11-21] MEDS: DOBUTamine / D5W 500 MG/250 ML BAG IV PRN (03:39)
[2018-11-21 04:43] LABS: Hematocrit (blood only) 27.4 % (37-47); Hemoglobin 8.9 g/dL (12.0-16.0); Mean Corpuscular Hgb Conc 32.5 g/dL (32-36); Mean Corpuscular Volume 93.2 fL (80-100); Mean Platelet Volume 11.9 fL (7.4-10.4); Platelet Count 183 K/uL (130-400); RDW Coefficient of Variation 13.3 % (11.5-14.5); RDW Standard Deviation 45.3 fL (36.4-46.3); Red Blood Count 2.94 M/uL (4.2-5.4); White Blood Count 11.34 K/uL (4.8-10.8)
[2018-11-21 05:08] LABS: Albumin Level 2.9 gm/dl (3.4-5.0); BUN Creatinine Ratio 20.2 (10-20); Creatinine Clr Calc Pharmacy 15.7 ml/min; Est GFR (African American) 24.5; Est GFR (Non-African American) 21.2; Potassium 4.1 mmol/L (3.5-5.1)
[2018-11-21 05:10] LABS: Albumin Globulin Ratio 0.9 (0.9-2); Bilirubin,Total 0.4 mg/dl (0.2-1); Globulin 3.3 gm/dl (2.5-4.0); Total Protein 6.2 gm/dl (6.4-8.2)
[2018-11-21 05:16] LABS: Partial Thromboplastin Ratio 2.8
[2018-11-21 05:18] LABS: Partial Thromboplastin Time 72.7 Seconds (21.0-31.0)
[2018-11-21] MEDS: FUROSEMIDE 100 MG in DEXTROSE 5% 90 ML IV SCH (06:32)
--- NOTE | 2018-11-21 07:07 | XRay Report ---
XR chest 1V portable CLINICAL HISTORY: CHF exacerbation COMPARISON STUDY: 11/19/2018 FINDINGS: There are postsurgical changes of a midline sternotomy. The heart remains enlarged. There i s improving congestive failure/fluid overload. There are persistent bilateral pleural effusions with associated bibasilar opacities. There are overlying cardiac leads. A nonspecific catheter projects ov er the mid chest region. Advanced arthritic changes are present within the shoulders right greater th an left.[ IMPRESSION: 1. Persistent but improving congestive failure. 2. Persistent bilateral pleural effusions with associated bibasilar atelectasis/consolidation 3. Nonspecific catheter projected over the mid chest region. Given its course it could potentially re present a pulmonary arterial catheter inserted from a femoral approach. Clinical correlation is advoc ated Electronically signed by: Merrick Mcintosh M.D. 11/21/2018 7:05 AM
[2018-11-21] MEDS: ATORVASTATIN 40 MG TAB PO SCH (09:27)
[2018-11-21] MEDS: CLOPIDOGREL BISULFATE 75 MG TAB PO SCH (09:27)
[2018-11-21] MEDS: PANTOprazole 40 MG TAB PO SCH (09:27)
[2018-11-21] MEDS: ASPIRIN 81 MG ECTAB PO SCH (09:27)
--- NOTE | 2018-11-21 16:36 | Critical Care Progress Note ---
Date of Service November 21, 2018 Assessment & Plan (1) Cardiogenic shock: Impression: 1. chronic hypoxic respiratory failure secondary to CHF. The patient is currently in cardiogenic shock, her cardiac output 3.24, her SVR is 2153, PVR only 61. Mixed venous and ABG are pending. Will review. 2. Acute pulmonary edema with CHF exacerbation, EF of 30%, pulmonary artery occlusive pressure is 24. PA pressures are 55/27. 3. History of chronic kidney disease. 4. Hyperlipidemia and hypertension. 5. Recent falls without intracranial injury. 6. Non-ST elevation VT. 7. New onset left bundle branch block. Plan: 1. Lasix drip at 5 mg an hour. 2. Continue heparin drip. 3. Increase dobutamine drip to 10 mics per KG per minute. 4. Obtain hemodynamic profile and Oxycal profile.. 5. Oral intake. 6. ICU core measures has been met. 7. DVT prophylaxis. 8. Discussed with the family at the bedside. 9. Discussed with the staff on rounds and details. 10. Palliative care consult. Critical care time spent with the patient was 45 minutes. Subjective The patient had an episode of chest pain yesterday, went into new onset left bundle branch block, denies any pain today no shoulder pain, the rest of her review of system was unremarkable. Physical Exam 2 Vital Signs (Past 24 Hours): Last Vital Signs Temp 37.0 C 11/21/18 06:00 Pulse 84 11/21/18 06:00 Resp 22 11/21/18 06:00 BP 105/55 L 11/21/18 06:00 Pulse Ox 91 11/21/18 06:00 Physical Exam: S1-S2, regular rate and rhythm, no JVP, lungs are distant clear , abdomen is soft and benign, right groin area appeared clean. Results & Data Laboratory Results Her labs were reviewed personally. Leukocytosis noted. Diagnostic Findings Chest x-ray remains with CHF. Cardiomegaly, PA catheter is in place.
[2018-11-21] MEDS: HEPARIN STANDARD DEXTROSE 25,000 UNITS/500 ML IV SCH (16:41)
[2018-11-21 17:16] LABS: iSTAT Allen Test Pass; iSTAT Arterial Blood Gas HCO3 23 meg/L (19-24); iSTAT Carbon Dioxide 24 mEq/l (24-31)
[2018-11-21] MEDS ORDERED: NOREPINEPHRINE BIT INJ 8 MG in DEXTROSE 5% 500 ML IV SCH (18:00)
--- NOTE | 2018-11-21 18:41 | Hospitalist Progress Note ---
Date of Service November 21, 2018 Assessment & Plan (1) Cardiogenic shock: Secondary to acute NSTEMI, now with LBBB, continued elevated pulm wedge pressures indicating pulm edema. -continues on Dobutamine drip, lasix gtt for diuresis, adding on levophed for hypotension -[place] catheter in place for close monitoring of pulmonary pressures- appreciate management of pulmonary/critical care and Cardiology (2) NSTEMI (non-ST elevated myocardial infarction): - Presented with acute chest pain related to NSTEMI; Troponin peaked at 5.9, now trending down. 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 Pt continues to decline any further intervention on her subclavian stenosis - Cardiology following, appreciate input. - continue Heparin gtt -continue dual anti-platelet therapy with ASA/Plavix. - not able to give beta delmar due to shock as above - Continue statin (3) Elevated troponin: - Related to NSTEMI; Trop peaked at 5.9. (4) Acute on chronic combined systolic and diastolic heart failure: Secondaryto acute [place]/NSTEMI, LVEF 30% - with crackles, hypoxia, elevated pulm wedge pressure consistent with pulm edema - TTE in 2013 showed EF 40-45%, grade I diastolic dysfunction. - TTE during this admission: EF 30-35% and left atrial dilation. -diuresed somewhat on admission with IV lasix, nowon lasix gtt - Monitor strict I/O's and daily weights - has yepez catheter for I/O's, net negative 1500 since admission, wt down 1.2 kg -Has [place] catheter in place and monitoring wedge pressures - Holding home ACEI due to hypotension (5) Acute respiratory failure with hypoxia: -secondary to acute CHF - back on high flow NC - Treatment of CHF as noted above. (6) Ischemic cardiomyopathy: - Echo June 2014 showed EF 40-45% with inferoposterior wall motion abnormality. - Repeat echo showed EF 30-35% with no wall motion abnormality noted. 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 - Diuresis as noted above. (8) Chronic kidney disease, stage 3: - Renally dose all medications. Baseline creatinine around 1.3 (9) Coronary artery disease: - Status post CABG x 2 in 2014 (PERALES to the LAD, an SVG to the OM2); follows with Dr. Hodges. - Consulted cardiology, s/p cardiac cath as noted above. With severe disease not amenable to intervention at this time due to being high risk (10) QT prolongation: - QTc was 519. - Avoid QT prolonging agents if possible. (11) Hyperlipidemia: - Continue statin (12) Hypertension: - H/o HTN, on Amlodipine and Lisinopril at home -- holding meds due to cardiogenic shock requiring Dobutamine drip. (13) Anemia: - Hemoglobin decreased to 8.9 from 11 on admission, no evidence of gross bleeding from anywhere - Hemoccult stool pending. - Monitor CBC closely especially in the setting of being on anticoagulation and dual antiplatelet therapy. (14) Leukocytosis: - WBC 13 and now down to 11. UA appears infected, started Rocephin -follow Ur cx - CXR negative for infection. (15) Fall: - S/p recent fall within last 2 weeks. - CT head was negative. Left arm could be hurting from fall (16) GERD (gastroesophageal reflux disease): -Continue PPI. (17) DVT prophylaxis: - Heparin drip. FEN/GI: no IVFs other than gtts Lines: PA Catheter, Yepez, PIV Dispo: remain in ICU Prognosis quite guarded DNR/DNI Subjective I saw the pt this evening around 1800 and her BP was low and she was being started on levophed. She told me that she was very nauseated and RN reported she had vomited once. She said she had no appetite. Had some intermittent left upper arm achiness. She is on HFNC and did not feel SOB. Denied chest pain. She had a mild headache. Overnight she developed some CP apparently and a repeat ECG showed a new LBBB. She was started on a nitro gtt at that time. She remains on a dobutamine gtt at 7, lasix gtt at 5mg/hr, nitro gtt, and heparin gtt. I discussed with her the possibility of the Travel Clerk performing intervention of her subclavian stenosis to help restore blood flow to her heart to help with her ongoing ischemia, and that while it would be high risk, it may benfit her if successful. She adamantly tols me she wanted to not have any more procedures performed. I discussed the case at length today with the Travel Clerk and the Certified Flex Endoscope Reprocessor/ Pocket Setter Lockstitch. Review of Systems All systems reviewed & are unremarkable except as noted in HPI & below Physical Exam 2 Vital Signs (Past 24 Hours): Last Vital Signs Temp 37.0 C 11/21/18 06:00 Pulse 93 H 11/21/18 17:46 Resp 20 11/21/18 17:46 BP 85/50 L 11/21/18 17:46 Pulse Ox 85 L 11/21/18 17:46 Constitutional: average body habitus; not in distress Eyes: PERRL, conjunctivae normal, anicteric sclerae ENMT: external ear and nose normal, oropharynx normal (with HFNC in place) Neck: trachea midline, no thyromegaly Respiratory: normal respiratory effort; no respiratory distress Auscultation: + crackles (at bases but improved from previous) Cardiovascular: RRR, no murmur, no edema Gastrointestinal (Abdomen): normal bowel sounds, soft, nontender, no hepatosplenomegaly Musculoskeletal: Extremities: extremities normal to inspection; no cyanosis and no clubbing Skin: no rashes, warm and dry Neurologic: moves all extremities and awake; no focal motor deficits Psychiatric: Orientation: alert, oriented to person, oriented to place and cooperative Eye Contact: good eye contact Affect: euthymic affect Thought Process: goal directed thought process Genitourinary: Yepez in place draining dark yellow urine Results & Data Laboratory Results 11/21/18 11/21/18 11/21/18 Range/Units 17:02 17:01 04:17 WBC (4.8-10.8) K/uL RBC (4.2-5.4) M/uL Hgb (12.0-16.0) g/dL Hct (37-47) % MCV (80-100) fL MCH (25-34) pg MCHC (32-36) g/dL RDW Std Deviation (36.4-46.3) fL RDW Coeff of [place] (11.5-14.5) % Plt Count (130-400) K/uL MPV (7.4-10.4) fL APTT 72.7 H* (21.0-31.0) Seconds PTT Ratio 2.8 Sample Site R Radial POC pH 7.40 (7.35-7.45) POC pCO2 37 (35-46) mmHg POC pO2 48 L (80-95) mmHg POC HCO3 23 (19-24) bertha/L POC Total CO2 24 (24-31) mEq/l POC Base Excess -1.0 (-9-1.8) bertha/L POC ABG O2 Sat 84.0 L (90-95) % Toi Test Pass Mixed VBG pH 7.38 (7.35-7.45) Mixed VBG pCO2 45 (38-50) mmHg Mixed VBG pO2 29 L (80-95) mmHg Mixed VBG HCO3 26 H (19-24) mmol/L Mixed VBG Base Excess 0.6 (-7.7-1.9) mEq/L Mixed VBG O2 Saturation < 60.0 (68) % Barometric Pressure 736.8 mm/Hg O2 Delivery Device Other Sodium (136-145) mmol/L Potassium (3.5-5.1) mmol/L Chloride (98-107) mmol/L Carbon Dioxide (21-32) mmol/L Anion Gap (3-11) BUN (7-18) mg/dl Creatinine (0.6-1.2) mg/dl Est Cr Clr Drug Dosing ml/min Est GFR ( Amer) Est GFR (Non-Af Amer) BUN/Creatinine Ratio (10-20) Glucose (70-99) mg/dl Calcium (8.5-10.1) mg/dl Magnesium (1.8-2.4) mg/dl Total Bilirubin (0.2-1) mg/dl AST (15-37) U/L ALT (12-78) U/L Alkaline Phosphatase (45-117) U/L Total Protein (6.4-8.2) gm/dl Albumin (3.4-5.0) gm/dl Globulin (2.5-4.0) gm/dl Albumin/Globulin Ratio (0.9-2) 11/21/18 11/21/18 Range/Units 04:17 04:17 WBC 11.34 H (4.8-10.8) K/uL RBC 2.94 L (4.2-5.4) M/uL Hgb 8.9 L (12.0-16.0) g/dL Hct 27.4 L (37-47) % MCV 93.2 (80-100) fL MCH 30.3 (25-34) pg MCHC 32.5 (32-36) g/dL RDW Std Deviation 45.3 (36.4-46.3) fL RDW Coeff of [place]air[place] 13.3 (11.5-14.5) % Plt Count 183 (130-400) K/uL MPV 11.9 H (7.4-10.4) fL APTT (21.0-31.0) Seconds PTT Ratio Sample Site POC pH (7.35-7.45) POC pCO2 (35-46) mmHg POC pO2 (80-95) mmHg POC HCO3 (19-24) bertha/L POC Total CO2 (24-31) mEq/l POC Base Excess (-9-1.8) bertha/L POC ABG O2 Sat (90-95) % Toi Test Mixed VBG pH (7.35-7.45) Mixed VBG pCO2 (38-50) mmHg Mixed VBG pO2 (80-95) mmHg Mixed VBG HCO3 (19-24) mmol/L Mixed VBG Base Excess (-7.7-1.9) mEq/L Mixed VBG O2 Saturation (68) % Barometric Pressure mm/Hg O2 Delivery Device Sodium 134 L (136-145) mmol/L Potassium 4.1 (3.5-5.1) mmol/L Chloride 99 (98-107) mmol/L Carbon Dioxide 28 (21-32) mmol/L Anion Gap 7.0 (3-11) BUN 42 H (7-18) mg/dl Creatinine 2.07 H D (0.6-1.2) mg/dl Est Cr Clr Drug Dosing 15.7 ml/min Est GFR ( Amer) 24.5 Est GFR (Non-Af Amer) 21.2 BUN/Creatinine Ratio 20.2 H (10-20) Glucose 121 H (70-99) mg/dl Calcium 8.0 L (8.5-10.1) mg/dl Magnesium 2.0 (1.8-2.4) mg/dl Total Bilirubin 0.4 (0.2-1) mg/dl AST 70 H (15-37) U/L ALT 12 (12-78) U/L Alkaline Phosphatase 69 (45-117) U/L Total Protein 6.2 L (6.4-8.2) gm/dl Albumin 2.9 L (3.4-5.0) gm/dl Globulin 3.3 (2.5-4.0) gm/dl Albumin/Globulin Ratio 0.9 (0.9-2) _ (1) Coronary artery disease Coronary Disease-Associated Artery/Lesion type: ruby artery [place] vs. transplanted heart: ruby heart Associated angina: with unstable angina Qualified Code(s): I25.110 - Atherosclerotic heart disease of ruby coronary artery with unstable angina pectoris (2) Hyperlipidemia Hyperlipidemia type: unspecified Qualified Code(s): E78.5 - Hyperlipidemia, unspecified (3) Hypertension Hypertension type: essential hypertension Qualified Code(s): I10 - Essential (primary) hypertension (4) Fall Encounter type: sequela Qualified Code(s): W19.XXXS - Unspecified fall, sequela
--- NOTE | 2018-11-21 21:53 | Progress Note ---
Date of Service November 21, 2018 9:50 PM Received a page from the patient's ICU nurse stating that the patient wishes to withdrawal all care. Per ICU nurse, she then contacted Dr. Pino who recommended that the on-call physician speak with the patient directly. I spoke with the patient's ICU nurse in person. She states that for the past couple of days the patient has wished to withdraw care and that this is not a sudden decision this evening. I spoke with Dr. Pino on the phone at about 9:30 PM. He says that he spent multiple hours with the patient today and that not once did the patient expressed a wish to withdraw care. He says that if the patient does wish to withdrawal care that I (recreation assistant resident) should contact Dr. Bower of cardiology as well as my attending. I spoke with the patient in person in her ICU room. She is awake, alert, and pleasantly conversational on supplemental high flow nasal cannula oxygen. I asked her what I could do for her she stated that she wanted "all of this" referring to her multiple medications and IV lines stopped. I asked her what would happen if we stopped these interventions. She directly stated that she would "pass away". I asked her why she wished to do this now, and the patient said that she is expressed a desire throughout this time not to be on these life -sustaining medications. She stated "I have had a good life" and that she does not wish to continue living like this. She does agree to comfort care measures such as morphine and Ativan to help with likely respiratory distress once these current life sustaining measures were stopped. I spoke with Dr. Bower on the phone 9:54 PM. He states that the patient would not benefit from any further interventions based on her current state of illness. He also states that on the first weekend that he met her she had mentioned to him that she was "ready to " at that time. I told Dr. Bower that the patient's expressed wish at the moment is to withdraw care. He said that that seemed reasonable, that she had expressed this wish before, and that her current wish to "is not just her illness talking". Dr. Menchaca saw the patient at bedside at 10:25 PM. Per his account, patient we stated that she wishes to have all of her current treatment withdrawn. He directs that the patient go on comfort care. I spoke with the the patient at 10:30 PM stating that we would be withdrawing care. She nodded her head yes and said "good". Plan: - We will stop all active treatments. Will stop all routine labs. - Ordered morphine 4 mg IV every 15 minutes as needed for pain or dyspnea. - Ordered Ativan 1 mg IV every 30 minutes as needed for pain, anxiety, or dyspnea. - Ordered Benadryl 50 mg IV every 4 hours. - Ordered scopolamine patch. - Bedside ICU nurse notified of the above in real-time. Aaron Koch MD PGY2 Overnight call Physical Exam 2 Vital Signs (Past 24 Hours): Last Vital Signs Temp 37.3 C 11/21/18 20:00 Pulse 98 H 11/21/18 20:00 Resp 20 11/21/18 20:00 BP 91/60 L 11/21/18 19:31 Pulse Ox 91 11/21/18 20:00
[2018-11-21] MEDS ORDERED: MoRPHine SULFATE 4 MG/ML 1 ML CARP\\VIAL IV PRN (22:37)
[2018-11-21] MEDS ORDERED: SCOPOLAMINE 1.5 MG TDSY TD SCH (22:45)
[2018-11-21] MEDS: cefTRIAXone SODIUM 1,000 MG in DEXTROSE 5% 50 ML IV SCH (22:58)
[2018-11-21] MEDS: LORazepam 1 MG/2 ML VIAL IV PRN (23:37)
[2018-11-21] MEDS: DiphenhydrAMINE HCL 50 MG/ML VIAL IV SCH (23:37)
[2018-11-21] MEDS: CHECK SCOPOLAMINE PATCH PLACEMENT SCH (23:56)
[2018-11-22] MEDS: LORazepam 1 MG/2 ML VIAL IV PRN (01:45)
[2018-11-22] MEDS: DiphenhydrAMINE HCL 50 MG/ML VIAL IV SCH ×3 (03:12→11:02)
[2018-11-22] MEDS: CHECK SCOPOLAMINE PATCH PLACEMENT SCH ×2 (09:33→16:00)
[2018-11-22] MEDS ORDERED: ATROPINE SULFATE 1% OP SOLN 2 ML BTL PO PRN (11:46)
--- NOTE | 2018-11-22 12:53 | Palliative Care Consultation ---
Date of Consultation November 22, 2018 Assessment & Plan (1) Goals of care, counseling/discussion: -87 year old female with PMH of CAD, CABG x 2, CKD, Hyperlipidemia, Hypertension, GERD who presented to the ER with chest pain. She was a heart alert and sent to laboratory technical specialist-- stenosis of subclavian artery causing ischemia. They were unable to intervene at that time. She was sent to the ICU in cardiogenic shock and hypoxic respiratory failure. Upon talking with patient and family, patient decided she did not want any aggressive measures or invasive procedures. She understood that not intervening could result in her . Her family was in agreement and supportive of patient's decision with withdraw care and be made comfortable. She was made ONCOLOGY RADIATION PHYSICIAN and transferred out of ICU, palliative care consulted. -Patient seen with four of her family members at bedside. Patient sleeping peacefully, family did not want me to wake her. She appeared comfortable with no s/s pain. No labored breathing. -Patient's family would like to see how she does in next 24-48 hours and potentially take her home with hospice. Answered family's questions/concerns. -At this point, patient could have hours to days. Family understands time is short and just want patient to be comfortable. -Continue with morphine as needed for pain or discomfort. Reevaluate tomorrow. (2) NSTEMI (non-ST elevated myocardial infarction): (3) Cardiogenic shock: (4) Ischemic cardiomyopathy: (5) Acute respiratory failure with hypoxia: Supervising Physician Co-Signing Physician Notes Chart reviewed, patient seen and examined. Patient's 5 sons and [id number] at bedside along with her brother and celebrity manager. Patient states she is comfortable, no respiratory distress, on O2 via nasal cannula. Patient awake alert and able to carry on brief conversations. PE: NAD HEENT: EOMI, normal hearing Respiratory: Unlabored, O2 in place CV: Regular rate Neuro: Alert Agree with above note, assessment and plan as per ARMANDO Clayton P-we will continue to follow and provide support to patient and family History of Present Illness Attending Physician: Imelda Cerna MD History of Present Illness This 87 year old female with PMH of CAD, CABG x 2, CKD, Hyperlipidemia, Hypertension, GERD who presented to the ER with chest pain. She was a heart alert and sent to laboratory technical specialist-- stenosis of subclavian artery causing ischemia. They were unable to intervene at that time. She was sent to the ICU in cardiogenic shock and hypoxic respiratory failure. Upon talking with patient and family, patient decided she did not want any aggressive measures or invasive procedures. She understood that not intervening could result in her . Her family was in agreement and supportive of patient's decision with withdraw care and be made comfortable. She was made ONCOLOGY RADIATION PHYSICIAN and transferred out of ICU, palliative care consulted. See A&P for details. Thank you kindly for this consult. I will follow as needed. Allergies Allergy/AdvReac Type Severity Reaction Status Date / Time No Known Allergies Allergy Mild Verified 11/19/18 06:46 Home Medications Home Medications Medication Instructions Recorded Confirmed Type amlodipine 10 mg PO DAILY 11/19/18 11/19/18 History aspirin [Aspir-81] 81 mg PO DAILY 11/19/18 11/19/18 History atorvastatin 80 mg PO DAILY 11/19/18 11/19/18 History calcium carbonate-vitamin D3 1 tab PO AMPM 11/19/18 11/19/18 History [Caltrate 600 + D] lisinopril 10 mg PO DAILY 11/19/18 11/19/18 History magnesium oxide 400 mg PO DAILY 11/19/18 11/19/18 History meclizine 25 mg PO Q6H PRN 11/19/18 11/19/18 History nitroglycerin [Nitrostat] 0.4 mg SUBLINGUAL UD PRN 11/19/18 11/19/18 History omeprazole 40 mg PO DAILY 11/19/18 11/19/18 History Patient History Medical History CKD (chronic kidney disease), stage III Chronic combined systolic and diastolic heart failure Coronary artery disease GERD (gastroesophageal reflux disease) Hyperlipidemia Hypertension Mitral regurgitation Surgical History H/O right knee surgery History of carotid endarterectomy Previous back surgery S/P CABG x 2 Social History Current Living Situation: Alone Other Information That Helps Us Care for You: No Feels Safe at Home: Yes Safety Concerns: Feels Safe At This Time Smoking Status: Former smoker Do You Dip or Chew Tobacco: No Smoking End Date: 1978 Tobacco Cessation Education Requested by Patient: No Hx Alcohol Use: No Hx Substance Use: No Beliefs That Will Affect Care: None Communication Ability: Effective Review of Systems unable to obtain at this time due to patient sleepng and family requesting to let her rest. Physical Exam 2 Vital Signs (Past 24 Hours): Last Vital Signs Temp 37.3 C 11/21/18 20:00 Pulse 73 11/22/18 07:00 Resp 28 H 11/22/18 07:00 BP 91/48 L 11/22/18 07:00 Pulse Ox 82 L 11/22/18 07:00 Constitutional: well developed, well nourished and comfortable; no acute distress ENMT: external ear and nose normal, oropharynx normal Neck: normal visual inspection and trachea midline Respiratory: normal respiratory effort; no respiratory distress and no labored breathing Auscultation: lungs clear to auscultation bilaterally and + diminished lung sounds Cardiovascular: Rate/Rhythm: regular rate and regular rhythm Vessels: no JVD Gastrointestinal (Abdomen): Inspection/Auscultation: abdomen normal to inspection and normal bowel sounds; abdomen not distended Percussion/ Palpation: abdomen soft Neurologic: + not awake (sleeping peacefully. family requested to not wake her ) Time Spent Midlevel 50 minutes with >50% of time spent at bedside with patient and family discussing comfort measures and EOL issues.
--- NOTE | 2018-11-22 16:58 | Critical Care Progress Note ---
Date of Service November 22, 2018 Assessment & Plan (1) Cardiogenic shock: Impression: 1. chronic hypoxic respiratory failure secondary to CHF. The patient is currently in cardiogenic shock, her cardiac output 3.24, her SVR is 2153, PVR only 61. Mixed venous and ABG are pending. Will review. 2. Acute pulmonary edema with CHF exacerbation, EF of 30%, pulmonary artery occlusive pressure is 24. PA pressures are 55/27. 3. History of chronic kidney disease. 4. Hyperlipidemia and hypertension. 5. Recent falls without intracranial injury. 6. Non-ST elevation [place]. 7. New onset left bundle branch block. Plan: 1. Discontinued Lasix drip as the patient become comfort measures. 2. Discontinue heparin drip. 3. Discontinue dobutamine drip. 4. Remove PA catheter. 5. Oral intake. 6. Transfer the patient to private bed with comfort measures only. 7. Discussed with the staff. 8. Discussed with the patient. 9. Appreciate palliative care consult. Critical care time spent with the patient was 45 minutes. Subjective The patient did well overnight, pain-free, no discomfort, decided overnight to make a decision to go for comfort measures only, her PA catheter was removed at the bedside, the patient was comfortable and denies any symptoms. Physical Exam 2 Vital Signs (Past 24 Hours): Last Vital Signs Temp 37.3 C 11/21/18 20:00 Pulse 73 11/22/18 07:00 Resp 28 H 11/22/18 07:00 BP 91/48 L 11/22/18 07:00 Pulse Ox 82 L 11/22/18 07:00 Physical Exam: Vital signs are stable, O2 saturation has been variable but requiring high level of oxygenation, S1-S2, positive JVP, bilateral crackles, abdomen is soft and benign, edema in the periphery. Results & Data Laboratory Results No labs for today. Diagnostic Findings No new imaging.
--- NOTE | 2018-11-22 20:00 | Hospitalist Progress Note ---
Date of Service November 22, 2018 Assessment & Plan (1) Cardiogenic shock: Secondary to acute NSTEMI, then developed LBBB, had continued elevated pulm wedge pressures indicating pulm edema. -was on Dobutamine drip, lasix gtt for diuresis, levophed for hypotension, heparin gtt for NSTEMI---> now all stopped due to wish to withdraw life- sustaining measures -[place] catheter will be discontinued Transition to comfor care only to include use of morphine IV for breathlessness or pain, ativan prn anxiety, scopolamine patch and atropine gtts po prn for secretions, can dc scheduled benadryl started overnight-making her too drowsy and she is actually conversive and able to follow commands when not on benadryl Will transfer out of ICU to medical floor Referral placed for home hospice in case pt is stable enough for transport home as per family's wish (2) NSTEMI (non-ST elevated myocardial infarction): - Presented with acute chest pain related to NSTEMI; Troponin peaked at 5.9, then trended down. 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 Pt continued to decline any further intervention on her subclavian stenosis - Cardiology following, appreciate input. - DUe to desire for comfort care--> discontinued Heparin gtt, ASA/Plavix, and statin (3) Elevated troponin: - Related to NSTEMI; Trop peaked at 5.9. (4) Acute on chronic combined systolic and diastolic heart failure: Secondary to acute NE/NSTEMI, LVEF 30% - with crackles, hypoxia, elevated pulm wedge pressure consistent with pulm edema - TTE in 2013 showed EF 40-45%, grade I diastolic dysfunction. - TTE during this admission: EF 30-35% and left atrial dilation. -diuresed somewhat on admission with IV lasix, then on lasix gtt Now on comfort care as above (5) Acute respiratory failure with hypoxia: -secondary to acute CHF . POx remains in low 80s on 6 LNC -NC now for comfort -IV morphine prn breathlessness (6) Ischemic cardiomyopathy: - Echo June 2014 showed EF 40-45% with inferoposterior wall motion abnormality. - Repeat echo showed EF 30-35% with no wall motion abnormality noted. (7) Acute kidney injury: - baseline refractory manager around 1.3, then up to 2.0, lytes ok No further labs to be checked, becoming oliguris on comfort measures (8) Chronic kidney disease, stage 3: Baseline creatinine around 1.3 (9) Coronary artery disease: - Status post CABG x 2 in 2013 (PERALES to the LAD, an SVG to the OM2); follows with Dr. Hodges. - Consulted cardiology, s/p cardiac cath as noted above. With severe disease not amenable to intervention at this time due to being high risk--> comfort care (10) QT prolongation: - QTc was 519. (11) Hyperlipidemia: - discontinued statin (12) Hypertension: - H/o HTN, on Amlodipine and Lisinopril at home -- held meds due to cardiogenic shock requiring Dobutamine drip. (13) Anemia: - Hemoglobin decreased to 8.9 from 11 on admission, no evidence of gross bleeding from anywhere -no further labs ordered (14) Leukocytosis: - WBC 13 and then down to 11. Secondary to UTI POA UA appears infected, started Rocephin--> but now discontinued for comfort measures only - CXR negative for infection. (15) Fall: - S/p recent fall within last 2 weeks. - CT head was negative. Left arm was hurting from fall -now improved, morphine prn (16) GERD (gastroesophageal reflux disease): -discontinued PPI. (17) DVT prophylaxis: None Dispo-now on comfort measures only, referral for home hospice--> family desire to bring pt home if no danger of imminent on way home DNR/DNI Expect her to pass away in the next 1-2 days Subjective Pt was placed on comfort measures only last night. She did not feel well and told the overnight doctor that she did not want any further vasopressor support or treatment for her cardiogenic shock. All of her medications were discontinued and she was placed on morphine, ativan, scopolamine patch, and benadryl IV for comfort. This AM, pt is drowsy with the benadryl, but RN reports that when it wears off, she is awake and said that she feels better today than yesterday. Nt making much urine output. I confirmed with the son at the bedside about the overnight events and her decision to be made comrt care and he is in agreement, stating "this is what she has said she has wanted for over 20 years" in reference to if she had an end stage condition. Pt denies pain to me, denies SOB, was removed from HFNC and placed on NC. Review of Systems All systems reviewed & are unremarkable except as noted in HPI & below Physical Exam 2 Vital Signs (Past 24 Hours): Last Vital Signs Temp 37.3 C 11/21/18 20:00 Pulse 73 11/22/18 07:00 Resp 28 H 11/22/18 07:00 BP 91/48 L 11/22/18 07:00 Pulse Ox 82 L 11/22/18 07:00 Constitutional: average body habitus; not in distress Eyes: PERRL, conjunctivae normal, anicteric sclerae ENMT: Ears: no hearing impairment (NC in place) Neck: trachea midline, no thyromegaly Respiratory: normal respiratory effort; no respiratory distress Auscultation: + crackles (at bases ) Cardiovascular: RRR, no murmur, no edema Gastrointestinal (Abdomen): normal bowel sounds, soft, nontender, no hepatosplenomegaly Musculoskeletal: Extremities: extremities normal to inspection; no cyanosis and no clubbing Skin: no rashes, warm and dry Neurologic: no focal motor deficits and + not awake (sleeping) Genitourinary: Marquez in place with dark yellow urine, small amount _ (1) Coronary artery disease Associated angina: with unstable angina Coronary Disease-Associated Artery/ Lesion type: [place] artery [place] vs. transplanted heart: [place] heart Qualified Code(s): I25.110 - Atherosclerotic heart disease of [place] coronary artery with unstable angina pectoris (2) Hyperlipidemia Hyperlipidemia type: unspecified Qualified Code(s): E78.5 - Hyperlipidemia, unspecified (3) Hypertension Hypertension type: essential hypertension Qualified Code(s): I10 - Essential (primary) hypertension (4) Fall Encounter type: sequela Qualified Code(s): W19.XXXS - Unspecified fall, sequela
[2018-11-22] MEDS: MoRPHine SULFATE 2 MG/ML CARP IV PRN ×2 (20:52→22:09)
[2018-11-23] MEDS: CHECK SCOPOLAMINE PATCH PLACEMENT SCH ×2 (00:22→08:25)
[2018-11-23] MEDS: LORazepam 1 MG/2 ML VIAL IV PRN (02:22)
[2018-11-23] MEDS: MoRPHine SULFATE 2 MG/ML CARP IV PRN ×3 (09:47→12:33)
--- NOTE | 2018-11-23 13:01 | Palliative Care Progress Note ---
Date of Service November 23, 2018 Assessment & Plan (1) Goals of care, counseling/discussion: -87 year old female who presented with NSTEMI, heart alert, stenosed subclavian artery. No intervention per patient's wishes. -Comfort measures only. -Family reports patient does still wake up. Opens eyes, had a few drinks and some bites of breakfast this morning. -Discussed with patient's son, Parmjit, that she could still be with us for days. She appears stable to me. He verbalized understanding. -Receiving intermittent, infrequent, doses of IV morphine for comfort. -Family does not want to move patient out of hospital. No apparent need for GIP hospice at this time. (2) NSTEMI (non-ST elevated myocardial infarction): (3) Cardiogenic shock: (4) Ischemic cardiomyopathy: (5) Acute respiratory failure with hypoxia: Subjective Patient sleeping peacefully and what appears to be comfortably. Son at bedside and denies any questions/concerns. Patient still waking up intermittently. Review of Systems Unable to obtain due to family request. Physical Exam 2 Vital Signs (Past 24 Hours): Last Vital Signs Temp 37.3 C 11/21/18 20:00 Pulse 73 11/22/18 07:00 Resp 28 H 11/22/18 07:00 BP 91/48 L 11/22/18 07:00 Pulse Ox 82 L 11/22/18 07:00 Constitutional: well developed, well nourished and comfortable; no acute distress ENMT: external ear and nose normal, oropharynx normal Neck: normal visual inspection and trachea midline Respiratory: normal respiratory effort; no respiratory distress and no labored breathing Auscultation: lungs clear to auscultation bilaterally and + diminished lung sounds Cardiovascular: Rate/Rhythm: regular rate and regular rhythm Vessels: no JVD Gastrointestinal (Abdomen): Inspection/Auscultation: abdomen normal to inspection and normal bowel sounds; abdomen not distended Percussion/ Palpation: abdomen soft Neurologic: + not awake (sleeping peacefully. family requested to not wake her ) Time Spent Midlevel 25 minutes with >50% of time spent at bedside with patient and family discussing condition and EOL issues.
--- NOTE | 2018-11-23 14:34 | Death Summary ---
Date of Service November 23, 2018 Pronouncement Note Date and Time of Date of : 11/23/18 Time of : 13:50 PCOD Preliminary cause of : Cardiogenic shock Contributing Factors (1) Acute on chronic combined systolic and diastolic heart failure: (2) NSTEMI (non-ST elevated myocardial infarction): (3) Ischemic cardiomyopathy: (4) Acute respiratory failure with hypoxia: (5) Coronary artery disease: (6) QT prolongation: (7) Hyperlipidemia: (8) GERD (gastroesophageal reflux disease): (9) Chronic kidney disease, stage 3: (10) Acute kidney injury: Summary Additional details: 87yo female with known severe CAD, s/p CABG in 2013, who presented with NSTEMI and acute/chronic CHF. Within a short period of time following admission she developed worsening CHF and acute hypoxic respiratory failure despite inotropic therapy and diuretics. She was taken emergently to the hospital laboratory technician on the evening of admission. Dr. Job Bower performed the cath which showed severe multi-vessel CAD. None of the stenotic lesions were felt safe to intervene on and thus stenting was not attempted. Post-cath she was treated in the ICU with supportive care for her NSTEMI, CHF, and cardiogenic shock with heparin, dobutamine, lasix drip, and pressor agents. On the evening of November 21 the patient voiced that she wanted to withdraw care. After a lengthy discussion all drips and aggressive care were discontinued. She was subsequently moved from the ICU to the medical floor where comfort care measures were initiated. Early in the afternoon on 11/23/2018 the patient passed peacefully in the presence of several family members. Additional Data Confirmation of : no pulse, no respirations, no heart sounds and pupils fixed and dilated Family: at bedside Attending/PCP notified?: Yes Attending physician: Usman Gupta Was code activated?: No Autopsy requested?: No lease examiner notified?: No
== END 2018-11-23 16:05 | disposition expired ==
LOC: ED 06:02 → SUATTDRO 08:40 → 2S 08:40 → 1E 23:07 → 4E 11-22 11:25